=== PATIENT | female | born 1940 | race African-American/Black ===

== ENCOUNTER 2017-08-28 05:51 | Observation (INO) | payer BC, MEDICARE ==
[2017-08-28] VITALS (8 sets, daily range): BP systolic 122–176; BP diastolic 70–82; PULSE 86–107; RESP 16–26; TEMP 97.4–100.1; O2SAT 94–100
[~2017-08-28] VITALS: Ht 162.6 cm; Wt 59.0 kg
[~2017-08-28 05:51] MED LIST: AMLO5TAB22 PO; ATOR80TA PO; CLOP75 PO; ISOS30TA3 PO; LISI-363 PO; METO25 PO; TRAM50 PO
--- NOTE | 2017-08-28 06:23 | PD ---
HPI Chief Complaint: Chest Pain Time Seen by Provider: 06:18 Travel History International Travel<30 days: No Contact w/Intl Traveler<30days: No Traveled to known affect area: No History of Present Illness HPI 76-year-old female patient with history of previous MN, presents to the ER with 2 days history of dyspnea on exertion, chest discomfort which she currently rates an 8 out of 10. She denies any nausea, vomiting, fevers, diarrhea, or other symptoms. She has not had similar discomfort before. Modifying Factors: Worse with walking Associated Signs & Symptoms: Chest discomfort, shortness of breath, dyspnea on exertion Risk Factors: MN history PFSH Past Medical History Heart Rhythm Problems: No Cardiac Catheterization: Yes Cardiovascular Problems: Yes High Cholesterol: Yes Diabetes: No Diminished Hearing: No Hypertension: Yes Myocardial Infarction: Yes Tubal Ligation: Yes Past Surgical History Cardiac Surgery: Yes Coronary Stent: Yes Social History Alcohol Use: No Tobacco Use: Yes (1/2 ppW) Substance Use: No Allergies-Medications (Allergen,Severity, Reaction): Coded Allergies: No Known Allergies (Unverified Adverse Reaction, Unknown, 08/28/17) Reported Meds & Prescriptions Reported Meds & Active Scripts Active No Active Prescriptions or Reported Medications Review of Systems Except as stated in HPI: all other systems reviewed are Neg Physical Exam Narrative GENERAL: Well-developed elderly -Dominican female patient currently in mild distress. Awake and oriented 3. SKIN: Focused skin assessment warm/dry. HEAD: Atraumatic. Normocephalic. EYES: Pupils equal and round. No scleral icterus. No injection or drainage. ENT: No nasal bleeding or discharge. Mucous membranes pink and moist. NECK: Trachea midline. No JVD. CARDIOVASCULAR: Regular rate and rhythm. No murmur appreciated. RESPIRATORY: No accessory muscle use. Clear to auscultation. Breath sounds equal bilaterally. GASTROINTESTINAL: Abdomen soft, non-tender, nondistended. Hepatic and splenic margins not palpable. MUSCULOSKELETAL: No obvious deformities. No clubbing. No cyanosis. No edema. NEUROLOGICAL: Awake and alert. No obvious cranial nerve deficits. Motor grossly within normal limits. Normal speech. PSYCHIATRIC: Appropriate mood and affect; insight and judgment normal. Data Data Last Documented VS Vital Signs Date Time Temp Pulse Resp B/P (MAP) Pulse Ox O2 Delivery O2 Flow Rate FiO2 08/28/17 06:33 105 26 176/82 (113) 95 Room Air 08/28/17 05:52 100.1 Orders Orders Electrocardiogram (08/28/17 06:19) Ckmb (Isoenzyme) Profile (08/28/17 06:19) Complete Blood Count With Diff (08/28/17 06:19) Comprehensive Metabolic Panel (08/28/17 06:19) Magnesium (Mg) (08/28/17 06:19) Prothrombin Time / Inr (Pt) (08/28/17 06:19) Act Partial Throm Time (Ptt) (08/28/17 06:19) Troponin I (08/28/17 06:19) Chest, Single Ap (08/28/17 06:19) Ecg Monitoring (08/28/17 06:19) Bilateral Bp Monitoring (08/28/17 06:19) Iv Access Insert/Monitor (08/28/17 06:19) Oximetry (08/28/17 06:19) Oxygen Administration (08/28/17 06:19) Sodium Chloride 0.9% Flush (Ns Flush) (08/28/17 06:30) B-Type Natriuretic Peptide (08/28/17 06:19) D-Dimer (08/28/17 06:23) Ct Pulmonary Angiogram (08/28/17 06:57) Labs Laboratory Tests Test 08/28/17 06:30 [facility] Medical Decision Making Medical Screen Exam Complete: Yes Emergency Medical Condition: Yes Medical Record Reviewed: Yes Interpretation(s) EKG shows sinus tachycardia rate of 100 bpm, no ST elevation or depression, and no arrhythmias. No significant T-wave inversions. Last 24 hours Impressions Chest X-Ray 08/28/17618 Signed Impressions: Service Date/Time: Monday, August 28, 2017 06:27 - CONCLUSION: The lungs are clear. Aleksander Han MD Differential Diagnosis Chest discomfort, shortness of breath: Pneumonia versus bronchitis versus COPD versus CHF versus ACS versus dysrhythmias Narrative Course Workup was initiated by me. EKG was unremarkable except for tachycardia. Chest x-ray did not show any signs of acute pulmonary processes. Physician Communication Physician Communication Case is signed out to Dr. Mojica at 7 AM awaiting lab workup. Disposition based on workup. Diagnosis Primary Impression: Chest pain Scripts No Active Prescriptions or Reported Meds Condition: Stable Carson Zapata MD Aug 28, 2017 06:23
[2017-08-28] MEDS ORDERED: SODIUM CHLORIDE 0.9% FLUSH 10 ML FLUSH IVF PRN (06:30)
--- NOTE | 2017-08-28 06:46 | RADRPT ---
EXAM DATE/TIME: 08/28/2017 06:27 [facility] COMPARISON: CHEST SINGLE AP, August 15, 2015, 2:25. INDICATIONS : Chest pain MEDICAL HISTORY : Myocardial infarction. Hypercholesterolemia. Hypertension SURGICAL HISTORY : Coronary artery stent. Tubal ligation. ENCOUNTER: Initial ACUITY: 1 day PAIN SCORE: 8/10 LOCATION: Bilateral chest FINDINGS: A single view of the chest demonstrates the lungs to be symmetrically aerated without evidence of mas s, infiltrate or effusion. The cardiomediastinal contours are unremarkable. The central bronchopulm onary markings well delineated. Osseous structures are intact. CONCLUSION: The lungs are clear. Aleksander Han MD on August 28, 2017 at 6:44 Board Certified Radiologist. This report was verified electronically.
[2017-08-28 07:11] LABS: BASOPHIL # 0.1 TH/MM3 (0-0.2); BASOPHIL % 0.8 % (0.0-2.0); EOSINOPHIL % 0.6 % (0.0-4.0); HEMATOCRIT 37.4 % (35.0-46.0); LYMPH % 11.5 % (9.0-44.0); LYMPHOCYTE # 0.7 TH/MM3 (1.0-4.8); MEAN CELL VOLUME 92.8 FL (80.0-100.0); MEAN CORPUSCULAR HEMOGLOBIN 30.5 PG (27.0-34.0); MEAN CORPUSCULAR HGB CONC 32.9 % (32.0-36.0); MONO % 7.3 % (0.0-8.0); NEUT % 79.8 % (16.0-70.0); PLATELET COUNT 251 TH/MM3 (150-450); RED BLOOD COUNT 4.03 MIL/MM3 (4.00-5.30); RED CELL DISTRIBUTION WIDTH 12.7 % (11.6-17.2); WHITE BLOOD COUNT 6.3 TH/MM3 (4.0-11.0)
[2017-08-28 07:19] LABS: APTT (PATIENT) 26.2 SEC (24.3-30.1); HEMO FLAGS AUTO DIFF; PROTHROMBIN TIME - PATIENT 10.8 SEC (9.8-11.6)
--- NOTE | 2017-08-28 07:22 | PD ---
Physical Exam Narrative Patient was seen by ED physician and signed out to me. Patient with history hypertension, diabetes on diet control, hyperlipidemia, history of CT 2012 status post stent placement. Patient states that she is a smoker. Patient states that she take aspirin daily however did not take aspirin yesterday or today. Patient states that she drank coffee this morning around 4:30- 5:00 in the morning. Data Data Last Documented VS Vital Signs Date Time Temp Pulse Resp B/P (MAP) Pulse Ox O2 Delivery O2 Flow Rate FiO2 08/28/17 08:25 91 142/71 (94) 142/74 (96) 08/28/17 08:23 22 94 Room Air 08/28/17 05:52 100.1 Orders Orders Electrocardiogram (08/28/17 06:19) Ckmb (Isoenzyme) Profile (08/28/17 06:19) Complete Blood Count With Diff (08/28/17 06:19) Comprehensive Metabolic Panel (08/28/17 06:19) Magnesium (Mg) (08/28/17 06:19) Prothrombin Time / Inr (Pt) (08/28/17 06:19) Act Partial Throm Time (Ptt) (08/28/17 06:19) Troponin I (08/28/17 06:19) Chest, Single Ap (08/28/17 06:19) Ecg Monitoring (08/28/17 06:19) Bilateral Bp Monitoring (08/28/17 06:19) Iv Access Insert/Monitor (08/28/17 06:19) Oximetry (08/28/17 06:19) Oxygen Administration (08/28/17 06:19) Sodium Chloride 0.9% Flush (Ns Flush) (08/28/17 06:30) B-Type Natriuretic Peptide (08/28/17 06:19) D-Dimer (08/28/17 06:23) Ct Pulmonary Angiogram (08/28/17 06:57) CKMB (08/28/17 06:30) CKMB% (08/28/17 06:30) Iohexol 350 Inj (Omnipaque 350 Inj) (08/28/17 08:01) Aspirin (Aspirin) (08/28/17 08:30) Admit Order (Ed Use Only) (08/28/17 08:30) Activity Bed Rest With Brp (08/28/17 08:32) Vital Signs (Adult) Q4H (08/28/17 08:32) Cardiac Rhythm .As Directed (08/28/17 08:32) Notify Dr: Other .PRN (08/28/17 08:32) Notify Dr. Parameters (08/28/17 08:32) Resp Oxygen Nasal Cannula (08/28/17 ) Diet Npo (08/28/17 Breakfast) Ckmb (Isoenzyme) Profile (08/28/17 09:30) Ckmb (Isoenzyme) Profile (08/28/17 12:30) Troponin I (08/28/17 09:30) Troponin I (08/28/17 12:30) Electrocardiogram (08/28/17 09:30) Electrocardiogram (08/28/17 12:30) ^ Obtain (08/28/17 08:32) Sodium Chloride 0.9% Flush (Ns Flush) (08/28/17 08:45) Sodium Chloride 0.9% Flush (Ns Flush) (08/28/17 09:00) Acetaminophen (Tylenol) (08/28/17 08:45) Fashion Patternmaker / Telemetry LARISSA.Q8H (08/28/17 08:32) Labs Laboratory Tests Test 08/28/17 06:30 White Blood Count 6.3 TH/MM3 Red Blood Count 4.03 MIL/MM3 Hemoglobin 12.3 GM/DL Hematocrit 37.4 % Mean Corpuscular Volume 92.8 FL Mean Corpuscular Hemoglobin 30.5 PG Mean Corpuscular Hemoglobin Concent 32.9 % Red Cell Distribution Width 12.7 % Platelet Count 251 TH/MM3 Mean Platelet Volume 7.9 FL Neutrophils (%) (Auto) 79.8 % Lymphocytes (%) (Auto) 11.5 % Monocytes (%) (Auto) 7.3 % Eosinophils (%) (Auto) 0.6 % Basophils (%) (Auto) 0.8 % Neutrophils # (Auto) 5.0 TH/MM3 Lymphocytes # (Auto) 0.7 TH/MM3 Monocytes # (Auto) 0.5 TH/MM3 Eosinophils # (Auto) 0.0 TH/MM3 Basophils # (Auto) 0.1 TH/MM3 CBC Comment AUTO DIFF Prothrombin Time 10.8 SEC Prothromb Time International Ratio 1.0 RATIO Activated Partial Thromboplast Time 26.2 SEC D-Dimer Quantitative (PE/DVT) 2.32 MG/L FEU Blood Urea Nitrogen 10 MG/DL Creatinine 0.76 MG/DL Random Glucose 123 MG/DL Total Protein 7.8 GM/DL Albumin 4.1 GM/DL Calcium Level 9.0 MG/DL Magnesium Level 1.9 MG/DL Alkaline Phosphatase 101 U/L Aspartate Amino Transf (AST/SGOT) 17 U/L Alanine Aminotransferase (ALT/SGPT) 18 U/L Total Bilirubin 0.6 MG/DL Sodium Level 132 MEQ/L Potassium Level 4.0 MEQ/L Chloride Level 100 MEQ/L Carbon Dioxide Level 21.6 MEQ/L Anion Gap 10 MEQ/L Estimat Glomerular Filtration Rate 89 ML/MIN Total Creatine Kinase 116 U/L Creatine Kinase MB 1.4 NG/ML Troponin I LESS THAN 0.02 NG/ML B-Type Natriuretic Peptide 74 PG/ML MDM Supervised Visit with RODOLFO: No Interpretation(s) 8:05 AM. CBC within normal limit. CMP with sodium 132. Cardiac enzymes are normal. BNP 74. D-dimer 2.32. 8:[address] Angiography 08/28/1757 Signed Impressions: Service Date/Time: Monday, August 28, 2017 07:45 - CONCLUSION: 1. No pulmonary embolus or other acute cardiopulmonary disease demonstrated. 2. Coronary artery calcification and emphysema. Rhett Green MD Chest X-Ray 08/28/17618 Signed Impressions: Service Date/Time: Monday, August 28, 2017 06:27 - CONCLUSION: The lungs are clear. Aleksander Han MD Narrative Course Aspirin 325 mg by mouth given. Patient will be admitted to the chest pain center. Diagnosis Primary Impression: Chest pain Qualified Codes: R07.9 - Chest pain, unspecified Admitting Information Admitting Physician Requests: Observation Scripts No Active Prescriptions or Reported Meds Condition: Stable Trey Mojica MD Aug 28, 2017 07:22
[2017-08-28 07:35] LABS: ALT (GPT) 18 U/L (10-53); ANION GAP 10 MEQ/L (5-15); AST (GOT) 17 U/L (15-37); BICARBONATE 21.6 MEQ/L (21.0-32.0); BLOOD UREA NITROGEN 10 MG/DL (7-18); CHLORIDE 100 MEQ/L (98-107); GLOMERULAR FILTRATION RATE 89 ML/MIN (>89); MAGNESIUM 1.9 MG/DL (1.5-2.5); SODIUM (NA) 132 MEQ/L (136-145)
[2017-08-28 07:39] LABS: ALKALINE PHOSPHATASE 101 U/L (45-117); CREATINE KINASE 116 U/L (26-192); TOTAL BILIRUBIN ADULT 0.6 MG/DL (0.2-1.0)
[2017-08-28 07:51] LABS: CKMB 1.4 NG/ML (0.5-3.6)
[2017-08-28] MEDS ORDERED: IOHEXOL 350 MG/ML 10 ML VIAL (for RAD DIAG) IVCONTRAST ONE (08:01)
--- NOTE | 2017-08-28 08:06 | RADRPT ---
EXAM DATE/TIME: 08/28/2017 07:45 [facility] COMPARISON: CHEST SINGLE AP, August 28, 2017, 6:27. CT PULMONARY ANGIOGRAM, August 15, 2015, 3:37. INDICATIONS : Chest pain IV CONTRAST: 75 cc Omnipaque 350 (iohexol) IV RADIATION DOSE: 9.77 CTDIvol (mGy) MEDICAL HISTORY : Cardiovascular disease. Hypertension. Hypercholesterolemia. SURGICAL HISTORY : Tubal ligation. Heart stents, heart cath ENCOUNTER: Initial ACUITY: 1 day PAIN SCALE: 8/10 LOCATION: Bilateral chest TECHNIQUE: Volumetric scanning of the chest was performed using a pulmonary embolism protocol MIP images were re constructed. Using automated exposure control and adjustment of the mA and/or kV according to patien t size, radiation dose was kept as low as reasonably achievable to obtain optimal diagnostic quality images. DICOM format image data is available electronically for review and comparison. Follow-up recommendations for detected pulmonary nodules are based at a minimum on nodule size and pa tient risk factors according to Fleischner Society Guidelines. FINDINGS: PULMONARY ARTERIES: No filling defects are seen in the pulmonary arteries through the segmental level. LUNGS: Emphysema again noted. 4 mm subpleural nodule right middle lobe unchanged, benign. No infiltrate, eff usion or pneumothorax. PLEURAE: There is no pleural thickening or pleural effusion. MEDIASTINUM: There is good visualization of the great vessels of the middle mediastinum. No evidence of mediastin al or hilar adenopathy/mass. Heart size normal. There is coronary artery calcification. There is also atherosclerosis and tortuosity of the thoracic aorta. MUSCULOSKELETAL: Within normal limits for patient age. MISCELLANEOUS: The visualized upper abdominal organs demonstrate no acute abnormality. CONCLUSION: 1. No pulmonary embolus or other acute cardiopulmonary disease demonstrated. 2. Coronary artery calcification and emphysema. Rhett Green MD on August 28, 2017 at 8:03 Board Certified Radiologist. This report was verified electronically.
[2017-08-28] MEDS ORDERED: ASPIRIN 325 MG TAB PO ONE (08:30)
[2017-08-28 08:36] LABS: SCAN/DIFF AUTO DIFF CONFIRMED
[2017-08-28 08:37] LABS: PLATELET ESTIMATE SMEAR NORMAL (NORMAL); PLATELET MORPHOLOGY NORMAL (NORMAL)
[2017-08-28] MEDS ORDERED: SODIUM CHLORIDE 0.9% FLUSH 10 ML FLUSH IV FLUSH PRN (08:45)
[2017-08-28] MEDS ORDERED: ACETAMINOPHEN 500 MG CPLT PO PRN (08:45)
[2017-08-28] MEDS ORDERED: SODIUM CHLORIDE 0.9% FLUSH 10 ML FLUSH IV FLUSH SCH (09:00)
[2017-08-28] MEDS ORDERED: ONDANSETRON HCL 4 MG/2 ML VIAL IV PUSH PRN (09:15)
[2017-08-28] MEDS ORDERED: NITROGLYCERIN 0.4 MG SL 25 TABS/BTL SL PRN (09:15)
--- NOTE | 2017-08-28 10:26 | HHI.HP ---
HPI Primary Care Physician Primary Care Physician Dr. Myers Chief Complaint Chest pain History of Present Illness 76-year-old female with history of hypertension, hyperlipidemia, CAD, type II diabetes, and current smoker presents to emergency room for further evaluation of chest pain. Onset yesterday morning. Initially thought she needed to have bowel movement upon awakening. Developed abdominal upset and cramping. Experienced substernal chest pain simultaneously. Unable to describe pain only stating "it hurt really bad, I thought I was going to have a heart attack." Precipitating factors exertion, stating each time she attempted to walk yesterday she developed substernal chest pain, however pointing to right upper quadrat. Relieving factors rest. Denies discomfort occurring during nonexertional periods. No associated symptoms of nausea, vomiting, dyspnea, or diaphoreses. Unable to give accurate duration, reporting pain occurred more often then not yesterday. Denies similar pain in the past. Currently she is chest pain free. Abdominal pain as completely resolved. Does not remember events of myocardial infarct in 2012. States "I don't remember anything about my heart attack, I just woke up in the hospital." Endorses current respiratory illness beginning 3 days ago. Productive cough, no fever or chills. Endorses she is not taking any of her prescription medications, cannot remember how long she has been out of her medications, and she is not following with a PCP. Patient is a poor historian, suspected memory issues. ER documentation states patient endorses coffee early am hours, however patient has constantly denied eating or drinking anything this morning. Review of Systems General: Current respiratory illness and fatigue. No fever, chills, or change in appetite. Has been in her general state of health. Reports she lives with her children and currently "getting my life together." Current does not have a PCP or taking any medications. Unable to give timeframe of how long she has not taken her medications. States her family would not know either. HEENT: No MCCLAIN, no nasal congestion, current nasal drainage CV: As stated above. No current CP, discomfort, or pressure. RESP: No SOB. Productive cough "when I cough hard." Sputum color unknown. Intermittent wheeze x 2 days. Current cigar smoker. GI: No nausea, vomiting, bowel changes, diarrhea, constipation, or pain. : No dysuria, urgency, or frequency. EXT: No lower leg edema, no paraesthesias MS: No discomfort, change in ROM, injury, recent fall, or trauma. NEURO: No difficulty with balance, LOC, motor/sensory deficits PSYCH: No anxiety, depression, or situational stress. SKIN: No rashes, no concerning lesions Past Family Social History Allergies: Coded Allergies: No Known Allergies (Verified Allergy, Unknown, 08/28/17) Past Medical History CAD, [place] x1 cardiac stent (2011), hypertension, diabetes type 2, hyperlipidemia Past Surgical History Tubal ligation Reported Medications Reported Meds & Active Scripts Active No Active Prescriptions or Reported Medications Active Ordered Medications Current Medications Medications (Trade) Dose Ordered Sig/Brown Route Start Time Stop Time Status Last Admin (NS Flush) 2 ml UNSCH PRN IV FLUSH 08/28/17 08:45 (NS Flush) 2 ml BID IV FLUSH 08/28/17 09:00 08/28/17 08:40 (Tylenol) 500 mg Q4H PRN PO 08/28/17 08:45 (Zofran Inj) 4 mg Q6H PRN IV PUSH 08/28/17 09:15 (Nitrostat Sl) 0.4 mg Q5M PRN SL 08/28/17 09:15 (Aspirin) 325 mg DAILY PO 08/29/17 09:00 Family History Noncontributory for early onset cardiovascular disease. Social History Known coronary artery disease, diabetes, hypertension, and hyperlipidemia. Current smoker, smokes cigars daily. Vague on amount and duration. No alcohol. Single, lives alone. Spoke with daughter, Liza. Liza states patient used to live with her but her mother became angry insisted on living alone. Past Cardiac Testing 08/15/2015 Lexiscan-no reversible perfusion defects to suggest stress-induced myocardial ischemia, EF 62%, intact wall motion, no hypokinetic or dyskinetic wall motion. Does not follow with a supervisor in charge. x1 Stent placed in [place], does not remember events of myocardial infarct. Physical Exam Vital Signs Vital Signs Date Time Temp Pulse Resp B/P (MAP) Pulse Ox O2 Delivery O2 Flow Rate FiO2 08/28/17 08:25 91 142/71 (94) 142/74 (96) 08/28/17 08:23 93 22 142/71 (94) 94 Room Air 08/28/17 06:33 105 26 176/82 (113) 95 Room Air 08/28/17 05:52 100.1 102 16 172/82 (112) 96 Room Air Physical Exam GENERAL: Alert WN, WD, thin, NAD, pleasant, elderly female HEAD: NC, AT EYES: Sclera clear, conjunctiva without injection, pupils equal and round ENT: Mucous membranes pink and moist CV: RRR, without murmur, rub, gallop, no JVD, S1-S2 no S3-S4. Chest wall nontender with palpation. Bilateral carotid and femoral bruits. RESP: Inspiratory wheeze upper lobes, rhonchi throughout bilateral, no crackles. Symmetrical chest rise, nonlabored, able to speak in full sentences. Harsh, nonproductive cough. ABD: Soft, NT, ND, no masses, positive bowel tones, flat EXT: Pedal pulses +2 right, +1 left, no dependent edema MS: Normal tone 4 extremities, no obvious deformities, full range of motion NEURO: CN II through CN XII grossly intact, motor strength 5/5 PSYCH: A+O 3, pleasant affect, appropriate speech, mood, insight and judgment SKIN: Normal turgor, normal texture, no lesions, no rashes Laboratory Laboratory Tests Test 08/28/17 06:30 White Blood Count 6.3 Red Blood Count 4.03 Hemoglobin 12.3 Hematocrit 37.4 Mean Corpuscular Volume 92.8 Mean Corpuscular Hemoglobin 30.5 Mean Corpuscular Hemoglobin Concent 32.9 Red Cell Distribution Width 12.7 Platelet Count 251 Mean Platelet Volume 7.9 Neutrophils (%) (Auto) 79.8 Lymphocytes (%) (Auto) 11.5 Monocytes (%) (Auto) 7.3 Eosinophils (%) (Auto) 0.6 Basophils (%) (Auto) 0.8 Neutrophils # (Auto) 5.0 Lymphocytes # (Auto) 0.7 Monocytes # (Auto) 0.5 Eosinophils # (Auto) 0.0 Basophils # (Auto) 0.1 CBC Comment AUTO DIFF Differential Comment AUTO DIFF CONFIRMED Platelet Estimate NORMAL Platelet Morphology Comment NORMAL Prothrombin Time 10.8 Prothromb Time International Ratio 1.0 Activated Partial Thromboplast Time 26.2 D-Dimer Quantitative (PE/DVT) 2.32 Blood Urea Nitrogen 10 Creatinine 0.76 Random Glucose 123 Total Protein 7.8 Albumin 4.1 Calcium Level 9.0 Magnesium Level 1.9 Alkaline Phosphatase 101 Aspartate Amino Transf (AST/SGOT) 17 Alanine Aminotransferase (ALT/SGPT) 18 Total Bilirubin 0.6 Sodium Level 132 Potassium Level 4.0 Chloride Level 100 Carbon Dioxide Level 21.6 Anion Gap 10 Estimat Glomerular Filtration Rate 89 Total Creatine Kinase 116 Creatine Kinase MB 1.4 Troponin I LESS THAN 0.02 B-Type Natriuretic Peptide 74 Result Diagram: 08/28/1762908/28/[address] Angiography 08/28/17656 Signed Impressions: Service Date/Time: Monday, August 28, 2017 07:45 - CONCLUSION: 1. No pulmonary embolus or other acute cardiopulmonary disease demonstrated. 2. Coronary artery calcification and emphysema. Rhett Green MD Chest X-Ray 08/28/17618 Signed Impressions: Service Date/Time: Monday, August 28, 2017 06:27 - CONCLUSION: The lungs are clear. Aleksander Han MD Course EKG NSR, no st segment changes, criteria for LVH Caprini VTE Risk Assessment Caprini VTE Risk Assessment: Mod/High Risk (score >= 2) Caprini Risk Assessment Model Point Value = 1 Point Value = 2 Point Value = 3 Point Value = 5 Age 41-60 Minor surgery BMI > 25 kg/m2 Swollen legs Varicose veins or History of unexplained or recurrent spontaneous Oral contraceptives or hormone replacement Sepsis (< 1 month) Serious lung disease, including pneumonia (< 1 month) Abnormal pulmonary function Acute myocardial infarction Congestive heart failure (< 1 month) History of inflammatory bowel disease Medical patient at bed rest Age 61-74 Arthroscopic surgery Major open surgery (> 45 min) Laparoscopic surgery (> 45 min) Malignancy Confined to bed (> 72 hours) Immobilizing plaster cast Central venous access Age >= 75 History of VTE Family history of VTE Factor V Leiden Prothrombin [id number] Lupus anticoagulant Anticardiolipin antibodies Elevated serum homocysteine Heparin-induced thrombocytopenia Other congenital or acquired thrombophilia Stroke (< 1 month) Elective arthroplasty Hip, pelvis, or leg fracture Acute spinal cord injury (< 1 month) Prophylaxis Regimen Total Risk Factor Score Risk Level Prophylaxis Regimen 0-1 Low Early ambulation 2 Moderate Order ONE of the following: *Sequential Compression Device (SCD) *Heparin 5000 units SQ BID 3-4 Higher Order ONE of the following medications: *Heparin 5000 units SQ TID *Enoxaparin/Lovenox 40 mg SQ daily (WT < 150 kg, CrCl > 30 mL/min) *Enoxaparin/Lovenox 30 mg SQ daily (WT < 150 kg, CrCl > 10-29 mL/min) *Enoxaparin/Lovenox 30 mg SQ BID (WT < 150 kg, CrCl > 30 mL/min) AND/OR *Sequential Compression Device (SCD) 5 or more Highest Order ONE of the following medications: *Heparin 5000 units SQ TID (Preferred with Epidurals) *Enoxaparin/Lovenox 40 mg SQ daily (WT < 150 kg, CrCl > 30 mL/min) *Enoxaparin/Lovenox 30 mg SQ daily (WT < 150 kg, CrCl > 10-29 mL/min) *Enoxaparin/Lovenox 30 mg SQ BID (WT < 150 kg, CrCl > 30 mL/min) AND *Sequential Compression Device (SCD) Assessment and Plan Assessment and Plan #1 Chest pain-admitted to chest pain. Rule out with 3 sets of EKGs, cardiac enzymes, and monitor on telemetry. Will be seen and evaluated by Dr. Boyd Cavanaugh. Discussed possiblilty of cardiac stress test after being ruled out and seen by supervisor in charge. Further disposition to follow. #2 History of CAD-encouraged her to establish with a supervisor in charge, discussed importance of compliance with medication, start Metoprolol 25 mg twice a day #3 Hyperlipidemia-benefits of cholesterol medication discussed, encouraged compliance with medication #4 Diabetic Type II-random glucose 123, encouraged establishing with a PCP, no SSI scale at this time #5 Hypertension-continue to monitor, the importance of tight blood pressure control, establish with a PCP, start amlodipine 5mg daily #6 Tobacco use-all encouraged and stressed the importance of tobacco cessation. Instructed her to quit smoking. #7 Acute bronchitis-albuterol RT x1 dose now 11:15 Spoke with patient's daughter via telephone. Daughter reports mother has been living alone, but currently in the process of moving her to her home. 1520 Lexiscan unremarkable. Plans to discharge. Patients brother, sister in law , and daughter taking patient home with them. Discharge instructions discussed with patient's brother. Encouraged follow up with PCP. Gavi Lawson Aug 28, 2017 10:26
[2017-08-28 10:44] LABS: CREATINE KINASE 131 U/L (26-192)
[2017-08-28] MEDS ORDERED: RESP: ALBUTEROL 2.5 MG/3 ML NEB (PRN) NEB (10:45)
[2017-08-28 10:56] LABS: CKMB 1.8 NG/ML (0.5-3.6)
[2017-08-28] MEDS ORDERED: amLODIPine BESYLATE 5 MG TAB PO ONE (11:00)
[2017-08-28] MEDS ORDERED: METOPROLOL TARTRATE 25 MG TAB PO SCH (11:00)
--- NOTE | 2017-08-28 11:50 | EKG ---
Date Performed: 08/28/2017 Time Performed: 06:25:42 PTAGE: 76 years EKG: SINUS TACHYCARDIA POSSIBLE RIGHT ATRIAL ENLARGEMENT MINIMAL VOLTAGE CRITERIA FOR LVH, CONSI YELENA NORMAL VARIANT NONSPECIFIC T-WAVE ABNORMALITY ABNORMAL RHYTHM ECG PREVIOUS TRACING : 08/15/2015 07.57 Compared to prior study, right atrial abnormality and nonsp ecific ST-T changes are new. DOCTOR: Navid Martinez Interpretating Date/Time 08/28/2017 11:49:19
--- NOTE | 2017-08-28 11:50 | EKG ---
Date Performed: 08/28/2017 Time Performed: 09:53:16 PTAGE: 76 years EKG: Sinus rhythm NONSPECIFIC T-WAVE ABNORMALITY Right atrial abnormality BORDERLINE ECG PREVIOUS TRACING : 08/28/2017 06.25 Compared to prior tracing no significant change DOCTOR: Navid Martinez Interpretating Date/Time 08/28/2017 11:50:12
[2017-08-28] MEDS ORDERED: LISI-515 PO (11:55)
[2017-08-28] MEDS ORDERED: METO25TA3 PO (11:55)
[2017-08-28 12:31] LABS: CREATINE KINASE 128 U/L (26-192)
[2017-08-28 12:44] LABS: CKMB 1.8 NG/ML (0.5-3.6)
[2017-08-28] MEDS ORDERED: ASPI81TA23 PO (13:03)
[2017-08-28] MEDS ORDERED: REGADENOSON INJ 0.4 MG/5 ML SYR ONE (14:13)
[2017-08-28] MEDS ORDERED: LISINOPRIL 20 MG TAB PO SCH (14:45)
[2017-08-28] MEDS ORDERED: cloNIDine HCL 0.1 MG TAB PO PRN (14:45)
--- NOTE | 2017-08-28 15:12 | RADRPT ---
EXAM DATE/TIME: 08/28/2017 14:00 [facility] COMPARISON: MYOCARDIAL PERF PHARM SPECT, GATED W/EF, August 15, 2015, 11:30. INDICATIONS : Mid chest pain for one day. Angina. Myocardial infarction. DOSE: 25.8 mCi Tc99m Myoview at stress. 8.7 mCi Tc99m Myoview at rest. 0.4 mg Lexiscan STRESS SYMPTOMS: Nausea and shortness of breath. EJECTION FRACTION: 69% MEDICAL HISTORY : Diabetes mellitus type 2. Hypertension. Cardiovascular disease SURGICAL HISTORY : Coronary artery stent. Tubal ligation. ENCOUNTER: Initial ACUITY: 1 day PAIN SCALE: 5/10 LOCATION: Midsternal chest TECHNIQUE: The patient underwent pharmacologic stress with infusion of prescribed dose. Continuous ECG tracing was monitored during stress. Gated SPECT imaging was performed after stress and conventional SPECT i maging was performed at rest. The examination was performed on a SPECT/CT scanner, both attenuation and non-corrected datasets were reviewed. FINDINGS: DISTRIBUTION: The maximum perfused segment at stress is in the lateral wall. PERFUSION STUDY: The pattern of perfusion at stress is within normal limits. GATED STUDY: There is intact wall motion and thickening without hypokinetic or dyskinetic segments. CONCLUSION: No reversible perfusion defects are identified to suggest stress-induced myocardial ischemia. RISK CATEGORY: Low (<1% Annual Mortality Rate) Theron Edwards MD on August 28, 2017 at 15:08 Board Certified Radiologist. This report was verified electronically.
--- NOTE | 2017-08-28 15:24 | HHI.DCPOC ---
Discharge Care Plan Diagnosis: (1) Atypical chest pain (2) Hypertension (3) Hyperlipidemia (4) CAD (coronary artery disease) (5) Tobacco abuse (6) H/O heart artery stent (7) Tobacco abuse Goals to Promote Your Health * To prevent worsening of your condition and complications * To maintain your health at the optimal level Directions to Meet Your Goals Take your medications as prescribed Follow your dietary instruction Follow activity as directed Keep your appointments as scheduled Take your immunizations and boosters as scheduled If your symptoms worsen call your PCP, if no PCP go to Urgent Care Center or Emergency Room Smoking is Dangerous to Your Health. Avoid second hand smoke Call the 24-hour hour crisis hotline for domestic abuse at Gavi Lawson Aug 28, 2017 15:24
[2017-08-29] MEDS ORDERED: ASPIRIN 325 MG TAB PO SCH (09:00)
--- NOTE | 2017-08-29 14:38 | TR ---
Date Performed: 08/28/2017 Time Performed: 14:19:15 DOCTOR: Navid Martinez DRUG LIST: CLINICAL HISTORY: ANGINA REASON FOR TEST: Angina REASON FOR ENDING: OBSERVATION: CONCLUSION: Lexiscan stress test was performed under standard four minute protocol. Radionuclid e was injected one minute prior to ending the test. No electrocardiographic abormalities were present to suggest ischemia. Nuclear imaging and interpretation are pending. COMMENTS:
--- NOTE | 2017-08-29 18:34 | EKG ---
Date Performed: 08/28/2017 Time Performed: 12:34:00 PTAGE: 76 years EKG: Sinus rhythm Consider anteroseptal myocardial infarction-age undeterminate. Repolarization abnormality. ABNORMAL ECG PREVIOUS TRACING : 08/28/2017 09.53 DOCTOR: Gurpreet Mcdonnell Interpretating Date/Time 08/29/2017 18:32:10
== END 2017-08-28 16:06 | disposition home or self-care (01) ==
LOC: NEPC 05:51 → NEDA 08:33 → NEPGCP 09:22
DX: R07.89 Other chest pain (principal); I10 Essential (primary) hypertension; J20.9 Acute bronchitis, unspecified; R10.9 Unspecified abdominal pain; I25.10 Atherosclerotic heart disease of native coronary artery without angina pectoris; F17.290 Nicotine dependence, other tobacco product, uncomplicated; E11.9 Type 2 diabetes mellitus without complications; I25.2 Old myocardial infarction; Z95.5 Presence of coronary angioplasty implant and graft; E78.00 Pure hypercholesterolemia, unspecified; R06.00 Dyspnea, unspecified; Z79.82 Long term (current) use of aspirin; R94.31 Abnormal electrocardiogram [ECG] [EKG]
CPT/HCPCS: 71010; 71275; 78452; 80053; 82550; 82552; 83690; 83735; 83880; 84484; 85025; 85379; 85610; 85730; 93005; 93017; 99285; A9502; G0378; J2785; Q9967

== ENCOUNTER 2017-12-31 15:21 | Emergency (ER) | payer MEDICARE ==
[~2017-12-31] VITALS: Ht 162.6 cm; Wt 65.0 kg
[~2017-12-31 15:21] MED LIST changes: -AMLO5TAB22 PO; +ASPI81TA23 PO; -ATOR80TA PO; -CLOP75 PO; -ISOS30TA3 PO; -LISI-363 PO; +LISI-515 PO; -METO25 PO; +METO25TA3 PO; -TRAM50 PO
[2017-12-31 15:50] VITALS: BP 173/72; PULSE 91; RESP 17; TEMP 98.7; O2SAT 99
== END 2017-12-31 18:51 | disposition left against medical advice (07) ==
LOC: NETRI 15:21
DX: Z53.21 Procedure and treatment not carried out due to patient leaving prior to being seen by health care provider (principal)
CPT/HCPCS: 99281

== ENCOUNTER 2018-02-17 21:17 | Emergency (ER) | payer MEDICARE ==
[~2018-02-17] VITALS: Ht 160 cm; Wt 58.0 kg
[2018-02-17 21:23] VITALS: BP 185/83; PULSE 110; RESP 16; TEMP 100.2; O2SAT 97
[2018-02-17] MEDS ORDERED: SODIUM CHLOR 0.9% 1000 ML INJ 1,000 ML IV SCH (21:32)
[2018-02-17 21:34] VITALS: BP 149/72; PULSE 105; RESP 16; O2SAT 96
[2018-02-17 21:35] VITALS: RESP 16
--- NOTE | 2018-02-17 21:36 | PD ---
HPI Chief Complaint: Chest Pain Time Seen by Provider: 21:32 Travel History International Travel<30 days: No Contact w/Intl Traveler<30days: No Traveled to known affect area: No History of Present Illness HPI 77-year-old female with history of coronary artery disease, hypertension, hyperlipidemia, presents via EMS for evaluation. For the past 2 days she has had dyspnea with exertion, lower substernal chest pain, cough. Cough is productive with white sputum. Symptoms are worsened with ambulation. She also endorses increased urinary frequency and urgency. Denies nausea, vomiting, diarrhea, constipation, recent travel, lower extremity edema. She is noted to be febrile with a temperature of 101.2 per EMS. She received 324 mg of aspirin as well as 1 dose of sublingual nitroglycerin. She reports that she moved to this area 2.5 years ago from [place] and she does not have a local primary care physician. She has no other complaints at this time. PFSH Past Medical History Heart Rhythm Problems: No Cardiac Catheterization: Yes Cardiovascular Problems: Yes High Cholesterol: Yes Congestive Heart Failure: Yes Diabetes: No Diminished Hearing: No Heparin Induced Thrombocytopen: No Hypertension: Yes Immunizations Current: Yes Myocardial Infarction: Yes Tetanus Vaccination: Unknown Influenza Vaccination: No Tubal Ligation: Yes Past Surgical History Cardiac Surgery: Yes Coronary Artery Bypass Graft: No Coronary Stent: Yes Family History Family Myocardial Infarction: No Social History Alcohol Use: No Tobacco Use: Yes (1/2 ppW) Substance Use: No Allergies-Medications (Allergen,Severity, Reaction): Coded Allergies: No Known Allergies (Verified Allergy, Unknown, 02/17/18) Reported Meds & Prescriptions Reported Meds & Active Scripts Active Zofran Odt (Ondansetron Odt) 4 Mg Tab 4 Mg SL Q6HR PRN Bentyl (Dicyclomine HCl) 10 Mg Cap 10 Mg PO TID PRN Review of Systems Except as stated in HPI: all other systems reviewed are Neg Physical Exam Narrative GENERAL: Pleasant well-developed well-nourished female no acute distress. Noted to be febrile and tachycardic. SKIN: Warm and dry. HEAD: Atraumatic. Normocephalic. EYES: Pupils equal and round. No scleral icterus. No injection or drainage. ENT: No nasal bleeding or discharge. Mucous membranes pink and moist. NECK: Trachea midline. No JVD. CARDIOVASCULAR: Regular rate and rhythm. No murmur appreciated. RESPIRATORY: No accessory muscle use. Clear to auscultation. Breath sounds equal bilaterally. GASTROINTESTINAL: Abdomen soft, tenderness to palpation in the epigastrium and right upper quadrant without guarding. No CVA tenderness. MUSCULOSKELETAL: No obvious deformities. No clubbing. No cyanosis. No edema. NEUROLOGICAL: Awake and alert. No obvious cranial nerve deficits. Motor grossly within normal limits. Normal speech. PSYCHIATRIC: Appropriate mood and affect; insight and judgment normal. Data Data Last Documented VS Vital Signs Date Time Temp Pulse Resp B/P (MAP) Pulse Ox O2 Delivery O2 Flow Rate FiO2 02/18/18 01:55 02/18/18 00:00 99.1 02/17/18 22:40 85 16 96 Room Air Orders Orders Ct Abd/Pel W Iv Contrast(Rout) (02/17/18 21:32) Us Abdomen Gallbladder (02/17/18 ) Chest, Single Ap (02/17/18 21:32) Sepsis Workup Initiated (02/17/18 ) Complete Blood Count With Diff (02/17/18 21:32) Comprehensive Metabolic Panel (02/17/18 21:32) Lactic Acid Sepsis Protocol (02/17/18 21:32) Urinalysis - C+S If Indicated (02/17/18 21:32) Blood Culture (02/17/18 21:32) Blood Glucose (02/17/18 21:32) Ecg Monitoring (02/17/18 21:32) Iv Access Insert/Monitor (02/17/18 21:32) Oximetry (02/17/18 21:32) Oxygen Administration (02/17/18 21:32) Electrocardiogram (02/17/18 21:32) Ckmb (Isoenzyme) Profile (02/17/18 21:32) Magnesium (Mg) (02/17/18 21:32) Prothrombin Time / Inr (Pt) (02/17/18 21:32) Act Partial Throm Time (Ptt) (02/17/18 21:32) Troponin I (02/17/18 21:32) Bilateral Bp Monitoring (02/17/18 21:32) Sodium Chlor 0.9% 1000 Ml Inj (Ns 1000 M (02/17/18 21:32) Morphine Inj (Morphine Inj) (02/17/18 21:45) Ondansetron Odt (Zofran Odt) (02/17/18 21:45) CKMB (02/17/18 21:40) CKMB% (02/17/18 21:40) Iohexol 350 Inj (Omnipaque 350 Inj) (02/17/18 23:06) Ed Discharge Order (02/18/18 01:35) Labs Laboratory Tests Test 02/17/18 21:40 White Blood Count 9.1 TH/MM3 Red Blood Count 3.81 MIL/MM3 Hemoglobin 11.7 GM/DL Hematocrit 34.3 % Mean Corpuscular Volume 90.2 FL Mean Corpuscular Hemoglobin 30.7 PG Mean Corpuscular Hemoglobin Concent 34.0 % Red Cell Distribution Width 12.4 % Platelet Count 235 TH/MM3 Mean Platelet Volume 7.4 FL Neutrophils (%) (Auto) 85.4 % Lymphocytes (%) (Auto) 6.9 % Monocytes (%) (Auto) 5.7 % Eosinophils (%) (Auto) 0.3 % Basophils (%) (Auto) 1.7 % Neutrophils # (Auto) 7.7 TH/MM3 Lymphocytes # (Auto) 0.6 TH/MM3 Monocytes # (Auto) 0.5 TH/MM3 Eosinophils # (Auto) 0.0 TH/MM3 Basophils # (Auto) 0.2 TH/MM3 CBC Comment DIFF FINAL Differential Comment Prothrombin Time 10.5 SEC Prothromb Time International Ratio 1.0 RATIO Activated Partial Thromboplast Time 26.4 SEC Urine Color LIGHT-YELLOW Urine Turbidity CLEAR Urine pH 7.5 Urine Specific [place] 1.008 Urine Protein 100 mg/dL Urine Glucose (UA) NEG mg/dL Urine Ketones NEG mg/dL Urine Occult Blood SMALL Urine Nitrite NEG Urine Bilirubin NEG Urine Urobilinogen LESS THAN 2.0 MG/DL Urine Leukocyte Esterase NEG Urine RBC 5 /hpf Urine WBC LESS THAN 1 /hpf Microscopic Urinalysis Comment CATH-CULT NOT IND Blood Urea Nitrogen 8 MG/DL Creatinine 0.81 MG/DL Random Glucose 112 MG/DL Total Protein 7.4 GM/DL Albumin 3.9 GM/DL Calcium Level 8.9 MG/DL Magnesium Level 1.7 MG/DL Alkaline Phosphatase 98 U/L Aspartate Amino Transf (AST/SGOT) 18 U/L Alanine Aminotransferase (ALT/SGPT) 13 U/L Total Bilirubin 0.4 MG/DL Sodium Level 134 MEQ/L Potassium Level 3.9 MEQ/L Chloride Level 95 MEQ/L Carbon Dioxide Level 26.8 MEQ/L Anion Gap 12 MEQ/L Estimat Glomerular Filtration Rate 83 ML/MIN Lactic Acid Level 1.3 mmol/L Total Creatine Kinase 218 U/L Creatine Kinase MB 2.1 NG/ML Creatine Kinase MB % 1.0 % Troponin I LESS THAN 0.02 NG/ML MDM Medical Decision Making Medical Screen Exam Complete: Yes Emergency Medical Condition: Yes Medical Record Reviewed: Yes Differential Diagnosis Pyelonephritis, cholecystitis, cholangitis, pneumonia, acute coronary syndrome, angina, empyema, pneumothorax, hemothorax, aortic dissection, colitis Narrative Course The patient was placed on ECG monitoring pulse oximetry. A 12-lead EKG was obtained. Plan is for lab work, chest x-ray, CT abdomen and pelvis, right upper quadrant ultrasound, blood cultures, urinalysis. She will be given IV normal saline. CBC reveals WBC count 9.1 with 85% neutrophils otherwise unremarkable. CMP is reassuring. Cardiac enzymes are negative. Lactic acid within normal limits. Urinalysis is not suggestive of infectious process. Chest x-ray is normal. 2300: At the end of my shift the patient was signed out pending imaging studies. Scripts Ondansetron Odt (Zofran Odt) 4 Mg Tab 4 MG SL Q6HR Y for Nausea/Vomiting, #7 TAB 0 Refills Prov: Carson Zapata MD 02/18/18 Dicyclomine (Bentyl) 10 Mg Cap 10 MG PO TID Y for Bowel Management, #12 CAP 0 Refills Prov: Carson Zapata MD 02/18/18 Fermín Chambers February 17, 2018 21:36
[2018-02-17] MEDS ORDERED: MORPHINE SULFATE 4 MG/ML INJ IV PUSH ONE (21:45)
[2018-02-17] MEDS ORDERED: ONDANSETRON ODT 4 MG TAB PO ONE (21:45)
--- NOTE | 2018-02-17 22:00 | RADRPT ---
EXAM DATE/TIME: 02/17/2018 21:44 [facility] COMPARISON: CHEST SINGLE AP, August 28, 2017, 6:27. INDICATIONS : Shortness of breath and chest pain. MEDICAL HISTORY : Myocardial infarction. SURGICAL HISTORY : Stent. ENCOUNTER: Initial ACUITY: 2 days PAIN SCORE: 5/10 LOCATION: chest FINDINGS: A single view of the chest demonstrates the lungs to be symmetrically aerated without evidence of mas s, infiltrate or effusion. The cardiomediastinal contours are unremarkable. Osseous structures are intact. CONCLUSION: No acute disease. Aleksander Harrison Jr., MD on February 17, 2018 at 21:57 Board Certified Radiologist. This report was verified electronically.
[2018-02-17 22:11] LABS: AUTOMATED NEUTROPHIL # 7.7 TH/MM3 (1.8-7.7); BASOPHIL # 0.2 TH/MM3 (0-0.2); BASOPHIL % 1.7 % (0.0-2.0); EOSINOPHIL % 0.3 % (0.0-4.0); HEMATOCRIT 34.3 % (35.0-46.0); HEMOGLOBIN 11.7 GM/DL (11.6-15.3); LYMPH % 6.9 % (9.0-44.0); LYMPHOCYTE # 0.6 TH/MM3 (1.0-4.8); MEAN CELL VOLUME 90.2 FL (80.0-100.0); MEAN CORPUSCULAR HEMOGLOBIN 30.7 PG (27.0-34.0); MEAN PLATELET VOLUME 7.4 FL (7.0-11.0); MONO % 5.7 % (0.0-8.0); MONOCYTE # 0.5 TH/MM3 (0-0.9); NEUT % 85.4 % (16.0-70.0); PLATELET COUNT 235 TH/MM3 (150-450); RED BLOOD COUNT 3.81 MIL/MM3 (4.00-5.30); RED CELL DISTRIBUTION WIDTH 12.4 % (11.6-17.2); WHITE BLOOD COUNT 9.1 TH/MM3 (4.0-11.0)
[2018-02-17 22:21] LABS: ALBUMIN 3.9 GM/DL (3.4-5.0); ALT (GPT) 13 U/L (10-53); AST (GOT) 18 U/L (15-37); BICARBONATE 26.8 MEQ/L (21.0-32.0); BILIRUBIN, URINE NEG (NEG); BLOOD UREA NITROGEN 8 MG/DL (7-18); BLOOD, URINE SMALL (NEG); CALCIUM 8.9 MG/DL (8.5-10.1); CHLORIDE 95 MEQ/L (98-107); CREATININE 0.81 MG/DL (0.50-1.00); GLOMERULAR FILTRATION RATE 83 ML/MIN (>89); GLUCOSE,RANDOM 112 MG/DL (74-106); GLUCOSE,URINE NEG (NEG); KETONE, URINE NEG (NEG); MAGNESIUM 1.7 MG/DL (1.5-2.5); NITRITE,URINE NEG (NEG); PH, URINE 7.5 (5.0-8.5); SODIUM (NA) 134 MEQ/L (136-145); URINE COLOR LIGHT-YELLOW (YELLW/STRAW); URINE LEUKOCYTE ESTERASE NEG (NEG)
[2018-02-17 22:24] LABS: PROTHROMBIN TIME - PATIENT 10.5 SEC (9.8-11.6)
[2018-02-17 22:25] LABS: ALKALINE PHOSPHATASE 98 U/L (45-117); TOTAL BILIRUBIN ADULT 0.4 MG/DL (0.2-1.0); TOTAL PROTEIN 7.4 GM/DL (6.4-8.2); TROPONIN I LESS THAN 0.02 NG/ML (0.02-0.05)
[2018-02-17 22:40] VITALS: BP 157/71; PULSE 85; RESP 16; O2SAT 96
[2018-02-17] MEDS ORDERED: IOHEXOL 350 MG/ML 10 ML VIAL (for RAD DIAG) IVCONTRAST ONE (23:06)
--- NOTE | 2018-02-17 23:24 | RADRPT ---
EXAM DATE/TIME: 02/17/2018 22:58 [facility] COMPARISON: No previous studies available for comparison. INDICATIONS : Abdominal pain. IV CONTRAST: 96 cc Omnipaque 350 (iohexol) IV ORAL CONTRAST: No oral contrast ingested. RADIATION DOSE: 6.64 CTDIvol (mGy) MEDICAL HISTORY : Cardiovascular disease. Hypertension. Coronary stent SURGICAL HISTORY : None. ENCOUNTER: Initial ACUITY: 2 days PAIN SCALE: 6/10 LOCATION: abdomen TECHNIQUE: Volumetric scanning of the abdomen and pelvis was performed. Using automated exposure control and ad justment of the mA and/or kV according to patient size, radiation dose was kept as low as reasonably achievable to obtain optimal diagnostic quality images. DICOM format image data is available electro nically for review and comparison. FINDINGS: LOWER LUNGS: The visualized lower lungs are clear. LIVER: Homogeneous density without lesion. There is no dilation of the biliary tree. No calcified gallston es. SPLEEN: Normal size without lesion. PANCREAS: Within normal limits. KIDNEYS: Normal in size and shape. There is no mass, stone or hydronephrosis. ADRENAL GLANDS: Within normal limits. VASCULAR: There is no aortic aneurysm. Severe atherosclerotic changes are noted with calcification. BOWEL/MESENTERY: No oral contrast was given limiting the sensitivity of the exam. There are multiple loops of nondilat ed air-containing small bowel.. Gas and stool is noted segmentally in the colon. There is no focal in flammatory change.. There is no free intraperitoneal air or fluid. ABDOMINAL WALL: Within normal limits. RETROPERITONEUM: There is no lymphadenopathy. BLADDER: No wall thickening or mass. REPRODUCTIVE: Within normal limits. INGUINAL: There is no lymphadenopathy or hernia. MUSCULOSKELETAL: Osteopenia, degenerative change and mild scoliosis are present CONCLUSION: 1. Mildly nonspecific nonobstructive bowel gas pattern which may represent a gastroenteritis or mild ileus. 2. Unremarkable gallbladder. Henrique Matute MD on February 17, 2018 at 23:18 Board Certified Radiologist. This report was verified electronically.
[2018-02-18] VITALS: TEMP 99.1
--- NOTE | 2018-02-18 01:29 | RADRPT ---
EXAM DATE/TIME: 02/18/2018 00:12 [facility] COMPARISON: No previous studies available for comparison. INDICATIONS : Chest pain. MEDICAL HISTORY : Hypertension. Hypercholesterolemia. Myocardial infarction 2015. SURGICAL HISTORY : Tubal ligation. ENCOUNTER: Initial ACUITY: 4-6 days PAIN SCORE: 7/10 LOCATION: Right upper quadrant MEASUREMENTS: LIVER: 14.2 cm length COMMON DUCT: 3 mm RIGHT KIDNEY: 8.4 x 4.2 x 4.2 cm FINDINGS: LIVER: Normal echotexture without focal lesion or ductal dilatation. COMMON DUCT: No intraluminal mass or stone visualized. GALLBLADDER: Contains no stones, demonstrates no wall thickening or pericholecystic fluid. PANCREAS: The visualized portions are within normal limits. RIGHT KIDNEY: No evidence of hydronephrosis, stone, or mass. CONCLUSION: Unremarkable exam. The gallbladder is within normal limits with no evidence of cholel ithiasis. Henrique Matute MD on February 18, 2018 at 1:27 Board Certified Radiologist. This report was verified electronically.
[2018-02-18] MEDS ORDERED: ZOFR4TAB3 SL (01:38)
[2018-02-18] MEDS ORDERED: DICY10 PO (01:38)
--- NOTE | 2018-02-18 01:38 | PD ---
Physical Exam Date Seen by Provider: February 18, 2018 Time Seen by Provider: 22:00 Narrative I, Dr. Zapata, have reviewed the advance practice practitioner's documentation and am in agreement, met with the patient face to face, made the diagnosis, and the medical decision making was done by me. *My assessment and Findings: Patient initially seen by PA, please see PA note for further details. Here with abdominal discomfort, low-grade fevers, urinary symptoms, diarrhea as well. On evaluation, she is mildly tender in the upper abdomen or right upper quadrant without guarding or rebound. Workup was initiated in the ER. Initial EKG did not show any signs of acute ST changes although she has mild tachycardia. She was given pain medications, nausea medications, and IV fluids in the ER. Laboratory Tests Test 02/17/18 21:40 Red Blood Count 3.81 MIL/MM3 (4.00-5.30) Hematocrit 34.3 % (35.0-46.0) Neutrophils (%) (Auto) 85.4 % (16.0-70.0) Lymphocytes (%) (Auto) 6.9 % (9.0-44.0) Lymphocytes # (Auto) 0.6 TH/MM3 (1.0-4.8) Urine Protein 100 mg/dL (NEG-TRACE) Urine Occult Blood SMALL (NEG) Urine RBC 5 /hpf (0-3) Random Glucose 112 MG/DL (74-106) Sodium Level 134 MEQ/L (136-145) Chloride Level 95 MEQ/L (98-107) Estimat Glomerular Filtration Rate 83 ML/MIN (>89) Total Creatine Kinase 218 U/L (26-192) Troponin I LESS THAN 0.02 NG/ML Last 24 hours Impressions Chest X-Ray 02/17/182131 Signed Impressions: Service Date/Time: Saturday, February 17, 2018 21:44 - CONCLUSION: No acute disease. Aleksander Harrison Jr., MD Abdomen/Pelvis CT 02/17/182131 Signed Impressions: Service Date/Time: Saturday, February 17, 2018 22:58 - CONCLUSION: 1. Mildly nonspecific nonobstructive bowel gas pattern which may represent a gastroenteritis or mild ileus. 2. Unremarkable gallbladder. Henrique Matute MD Lab results are fairly unremarkable. There is no significant leukocytosis. CAT scan did not show any signs of acute intra-abdominal processes although she may have some underlying gastroenteritis or mild ileus. She is not vomiting in the ER and is resting comfortably on reevaluation at 1:30 AM. At this point, she states that her symptoms are subsiding. My plan would be to release her with follow-up to primary care doctor. Return for worsening in symptoms as needed. The plan has been discussed with her and she states understanding. Data Data Last Documented VS Vital Signs Date Time Temp Pulse Resp B/P (MAP) Pulse Ox O2 Delivery O2 Flow Rate FiO2 02/18/18 00:00 99.1 02/17/18 22:40 85 16 96 Room Air Orders Orders Ct Abd/Pel W Iv Contrast(Rout) (02/17/18 21:32) Us Abdomen Gallbladder (02/17/18 ) Chest, Single Ap (02/17/18 21:32) Sepsis Workup Initiated (02/17/18 ) Complete Blood Count With Diff (02/17/18 21:32) Comprehensive Metabolic Panel (02/17/18 21:32) Lactic Acid Sepsis Protocol (02/17/18 21:32) Urinalysis - C+S If Indicated (02/17/18 21:32) Blood Culture (02/17/18 21:32) Blood Glucose (02/17/18 21:32) Ecg Monitoring (02/17/18 21:32) Iv Access Insert/Monitor (02/17/18 21:32) Oximetry (02/17/18 21:32) Oxygen Administration (02/17/18 21:32) Electrocardiogram (02/17/18 21:32) Ckmb (Isoenzyme) Profile (02/17/18 21:32) Magnesium (Mg) (02/17/18 21:32) Prothrombin Time / Inr (Pt) (02/17/18 21:32) Act Partial Throm Time (Ptt) (02/17/18 21:32) Troponin I (02/17/18 21:32) Bilateral Bp Monitoring (02/17/18 21:32) Sodium Chlor 0.9% 1000 Ml Inj (Ns 1000 M (02/17/18 21:32) Morphine Inj (Morphine Inj) (02/17/18 21:45) Ondansetron Odt (Zofran Odt) (02/17/18 21:45) CKMB (02/17/18 21:40) CKMB% (02/17/18 21:40) Iohexol 350 Inj (Omnipaque 350 Inj) (02/17/18 23:06) Ed Discharge Order (02/18/18 01:35) Labs Laboratory Tests Test 02/17/18 21:40 White Blood Count 9.1 TH/MM3 Red Blood Count 3.81 MIL/MM3 Hemoglobin 11.7 GM/DL Hematocrit 34.3 % Mean Corpuscular Volume 90.2 FL Mean Corpuscular Hemoglobin 30.7 PG Mean Corpuscular Hemoglobin Concent 34.0 % Red Cell Distribution Width 12.4 % Platelet Count 235 TH/MM3 Mean Platelet Volume 7.4 FL Neutrophils (%) (Auto) 85.4 % Lymphocytes (%) (Auto) 6.9 % Monocytes (%) (Auto) 5.7 % Eosinophils (%) (Auto) 0.3 % Basophils (%) (Auto) 1.7 % Neutrophils # (Auto) 7.7 TH/MM3 Lymphocytes # (Auto) 0.6 TH/MM3 Monocytes # (Auto) 0.5 TH/MM3 Eosinophils # (Auto) 0.0 TH/MM3 Basophils # (Auto) 0.2 TH/MM3 CBC Comment DIFF FINAL Differential Comment Prothrombin Time 10.5 SEC Prothromb Time International Ratio 1.0 RATIO Activated Partial Thromboplast Time 26.4 SEC Urine Color LIGHT-YELLOW Urine Turbidity CLEAR Urine pH 7.5 Urine Specific [place] 1.008 Urine Protein 100 mg/dL Urine Glucose (UA) NEG mg/dL Urine Ketones NEG mg/dL Urine Occult Blood SMALL Urine Nitrite NEG Urine Bilirubin NEG Urine Urobilinogen LESS THAN 2.0 MG/DL Urine Leukocyte Esterase NEG Urine RBC 5 /hpf Urine WBC LESS THAN 1 /hpf Microscopic Urinalysis Comment CATH-CULT NOT IND Blood Urea Nitrogen 8 MG/DL Creatinine 0.81 MG/DL Random Glucose 112 MG/DL Total Protein 7.4 GM/DL Albumin 3.9 GM/DL Calcium Level 8.9 MG/DL Magnesium Level 1.7 MG/DL Alkaline Phosphatase 98 U/L Aspartate Amino Transf (AST/SGOT) 18 U/L Alanine Aminotransferase (ALT/SGPT) 13 U/L Total Bilirubin 0.4 MG/DL Sodium Level 134 MEQ/L Potassium Level 3.9 MEQ/L Chloride Level 95 MEQ/L Carbon Dioxide Level 26.8 MEQ/L Anion Gap 12 MEQ/L Estimat Glomerular Filtration Rate 83 ML/MIN Lactic Acid Level 1.3 mmol/L Total Creatine Kinase 218 U/L Creatine Kinase MB 2.1 NG/ML Creatine Kinase MB % 1.0 % Troponin I LESS THAN 0.02 NG/ML [facility] Medical Record Reviewed: Yes Supervised Visit with RODOLFO: Yes Diagnosis Primary Impression: Abdominal pain Med/Other Pt SpecificInfo: Prescription(s) given Scripts Ondansetron Odt (Zofran Odt) 4 Mg Tab 4 MG SL Q6HR Y for Nausea/Vomiting, #7 TAB 0 Refills Prov: Carson Zapata MD 02/18/18 Dicyclomine (Bentyl) 10 Mg Cap 10 MG PO TID Y for Bowel Management, #12 CAP 0 Refills Prov: Carson Zapata MD 02/18/18 Disposition: 01 DISCHARGE HOME Condition: Stable Carson Zapata MD February 18, 2018 01:38
--- NOTE | 2018-02-18 18:21 | EKG ---
Date Performed: 02/17/2018 Time Performed: 21:29:10 PTAGE: 77 years EKG: SINUS TACHYCARDIA POSSIBLE RIGHT ATRIAL ENLARGEMENT POSSIBLE LEFT ATRIAL ENLARGEMENT MODERA TE ST DEPRESSION ABNORMAL ECG PREVIOUS TRACING : 08/28/2017 12.34 Compared to previous tracing, rate faster DOCTOR: Marcus Stephen Interpretating Date/Time 02/18/2018 18:21:09
== END 2018-02-18 02:22 | disposition home or self-care (01) ==
LOC: NEPE 21:17
DX: R10.9 Unspecified abdominal pain (principal); R05 Cough; F17.200 Nicotine dependence, unspecified, uncomplicated; R00.0 Tachycardia, unspecified
CPT/HCPCS: 71045; 74177; 76705; 80053; 81001; 82550; 82552; 83605; 83735; 84484; 85025; 85610; 85730; 87040; 93005; 96361; 96374; 99285; J2270; J7030; Q9967

== ENCOUNTER 2018-03-02 14:24 | Emergency (ER) | payer MEDICARE ==
[~2018-03-02] VITALS: Ht 163.8 cm; Wt 60.0 kg
[~2018-03-02 14:24] MED LIST changes: -ASPI81TA23 PO; +DICY10 PO; -LISI-515 PO; -METO25TA3 PO; +ZOFR4TAB3 SL
[2018-03-02 14:38] VITALS: BP 152/65; PULSE 86; RESP 24; TEMP 99.5; O2SAT 99
--- NOTE | 2018-03-02 15:29 | PD ---
HPI Chief Complaint: Chest Pain Time Seen by Provider: 15:18 Travel History International Travel<30 days: No Contact w/Intl Traveler<30days: No Traveled to known affect area: No History of Present Illness HPI This is a 77-year-old female who has a history of a heart attack in the past who presents to the emergency department with onset of sternal chest discomfort feeling like a stinging sensation that started when she woke up this morning at 9 AM, intermittent, moderate severity, relieved after she belched in the emergency department waiting room. She says she feels a lot better. She did have some shortness of breath with it. The pain is nonradiating. She has never had pain like this before. PFSH Past Medical History Heart Rhythm Problems: No Cardiac Catheterization: Yes Cardiovascular Problems: Yes High Cholesterol: Yes Congestive Heart Failure: Yes Diabetes: Yes (HX OF) Patient Takes Glucophage: No Diminished Hearing: No Heparin Induced Thrombocytopen: No Hypertension: Yes Immunizations Current: Yes Myocardial Infarction: Yes ?: Not Tubal Ligation: Yes Past Surgical History Cardiac Surgery: Yes Coronary Artery Bypass Graft: No Coronary Stent: Yes Social History Alcohol Use: No Tobacco Use: Yes (1/2 ppW) Substance Use: No Allergies-Medications (Allergen,Severity, Reaction): Coded Allergies: No Known Allergies (Verified Allergy, Unknown, 02/17/18) Reported Meds & Prescriptions Reported Meds & Active Scripts Active Zofran Odt (Ondansetron Odt) 4 Mg Tab 4 Mg SL Q6HR PRN Bentyl (Dicyclomine HCl) 10 Mg Cap 10 Mg PO TID PRN Review of Systems Except as stated in HPI: all other systems reviewed are Neg Physical Exam Narrative GENERAL:Well appearing, no acute distress SKIN: Focused skin assessment warm and dry. HEAD: Atraumatic. Normocephalic. EYES: Pupils equal and round. No injection or drainage. ENT: Moist mucous membranes NECK: Trachea midline. CARDIOVASCULAR: Regular rate and rhythm. No murmur appreciated. RESPIRATORY: Clear to auscultation. Breath sounds equal bilaterally. GASTROINTESTINAL: Abdomen soft, non-tender, nondistended. MUSCULOSKELETAL: No obvious deformities. NEUROLOGICAL: Awake and alert. No obvious cranial nerve deficits. Moving all extremities. PSYCHIATRIC: Appropriate mood and affect; insight and judgment normal. Data Data Last Documented VS Vital Signs Date Time Temp Pulse Resp B/P (MAP) Pulse Ox O2 Delivery O2 Flow Rate FiO2 03/02/18 14:38 99.5 86 24 152/65 (94) 99 Orders Orders Electrocardiogram (03/02/18 ) MDM Medical Decision Making Medical Screen Exam Complete: Yes Emergency Medical Condition: Yes Differential Diagnosis Myocardial infarction, pulmonary embolism, pneumonia, pneumothorax Narrative Course This is a 77-year-old female who has a history of a stent who presents to the emergency department with chest pain this morning. Currently she feels a lot better after she belched in the emergency department and she thinks this was all GI related. I expressed my concern that we should perform blood work and potentially admit her to the hospital for observation given her history. She does not want to stay. She expressed understanding that she is risking having a heart attack or but she wants to leave. I think she is capable of making her own decisions. Patient was discharged AGAINST MEDICAL ADVICE. Diagnosis Primary Impression: Chest pain Qualified Codes: R07.9 - Chest pain, unspecified Patient Instructions: General Instructions Additional Instructions: Return to the emergency department if you at all become concerned or develop chest pain. Med/Other Pt SpecificInfo: No Change to Meds Disposition: 07 AGAINST MEDICAL ADVICE Condition: Maria Isabel Lucas MD March 02, 2018 15:29
--- NOTE | 2018-03-03 19:39 | EKG ---
Date Performed: 03/02/2018 Time Performed: 14:49:17 PTAGE: 77 years EKG: Sinus rhythm MINIMAL VOLTAGE CRITERIA FOR LVH, CONSIDER NORMAL VARIANT NONSPECIFIC T-WAVE ABNORMALITY BORDERLINE ECG Compared to PREVIOUS TRACING , the patient is no longer tachycardic. PREVIOUS TRACING DOCTOR: Najma Mendiola Interpretating Date/Time 03/03/2018 19:38:41
== END 2018-03-02 15:36 | disposition left against medical advice (07) ==
LOC: NEPC 14:24
DX: R07.9 Chest pain, unspecified (principal); R06.02 Shortness of breath; R94.31 Abnormal electrocardiogram [ECG] [EKG]; I11.0 Hypertensive heart disease with heart failure; I50.9 Heart failure, unspecified; E11.9 Type 2 diabetes mellitus without complications; E78.00 Pure hypercholesterolemia, unspecified; I25.2 Old myocardial infarction; F17.200 Nicotine dependence, unspecified, uncomplicated
CPT/HCPCS: 93005

== ENCOUNTER 2018-04-04 10:25 | Emergency (ER) | payer MEDICARE ==
[~2018-04-04] VITALS: Ht 162.6 cm; Wt 55.0 kg
[2018-04-04 10:30] VITALS: BP 145/66; PULSE 93; RESP 16; TEMP 98.6; O2SAT 100
[2018-04-04 10:54] VITALS: RESP 18; O2SAT 98
[2018-04-04] MEDS ORDERED: SODIUM CHLORIDE 0.9% FLUSH 10 ML FLUSH IVF PRN (11:00)
[2018-04-04] MEDS ORDERED: ASPIRIN 81 MG CHEW TAB PO ONE (11:00)
--- NOTE | 2018-04-04 11:04 | PD ---
HPI Chief Complaint: Chest Pain Time Seen by Provider: 10:41 Travel History International Travel<30 days: No Contact w/Intl Traveler<30days: No Traveled to known affect area: No History of Present Illness HPI Patient is a 77-year-old female with history of CHF, diabetes, hyperlipidemia, coronary disease with stents, hypertension, presents the emergency room with her daughter for evaluation of chest pain. Overall, patient is a poor historian and does have history of dementia. She is alert to person and place, not time. Patient reports that she began to have chest pain since last night. Patient reports that pain is substernal, reports that pain was constant and nonradiating in nature. Patient denies any shortness of breath or diaphoresis with her chest pain. Patient is really unable to describe her chest pain, patient's daughter who is at bedside reports history of Alzheimer's dementia. Daughter reports that patient has had a productive cough for the past week and a half, she is a chronic smoker, reports that patient has refused to go to see a physician. Reports no fever or chills, no nausea or vomiting. Patient reports that she has resolution of chest pain at this time. PFSH Past Medical History Heart Rhythm Problems: No Cardiac Catheterization: Yes Cardiovascular Problems: Yes High Cholesterol: Yes Congestive Heart Failure: Yes Diabetes: Yes Patient Takes Glucophage: No Diminished Hearing: No Heparin Induced Thrombocytopen: No Hypertension: Yes Medical other: Yes Immunizations Current: Yes Myocardial Infarction: Yes Tetanus Vaccination: > 5 Years Influenza Vaccination: Yes ?: Not Menopausal: Yes : 6 Para: 6 Tubal Ligation: Yes Past Surgical History Cardiac Surgery: Yes Coronary Artery Bypass Graft: No Coronary Stent: Yes Social History Alcohol Use: No Tobacco Use: Yes (1/2 ppW) Substance Use: No Allergies-Medications (Allergen,Severity, Reaction): Coded Allergies: No Known Allergies (Verified Allergy, Unknown, 04/04/18) Reported Meds & Prescriptions Reported Meds & Active Scripts Active Zofran Odt (Ondansetron Odt) 4 Mg Tab 4 Mg SL Q6HR PRN Bentyl (Dicyclomine HCl) 10 Mg Cap 10 Mg PO TID PRN Review of Systems General / Constitutional: No: Fever, Chills Eyes: No: Visual changes HENT: No: Headaches Cardiovascular: Positive: Chest Pain or Discomfort Respiratory: Positive: Cough, No: Shortness of Breath, Wheezing Gastrointestinal: No: Abdominal Pain Genitourinary: No: Dysuria Musculoskeletal: No: Pain Skin: No Rash Neurologic: No: Weakness Psychiatric: No: Depression Endocrine: No: Polydipsia Hematologic/Lymphatic: No: Easy Bruising Physical Exam Narrative GENERAL: Mild distress SKIN: Focused skin assessment warm/dry. HEAD: Atraumatic. Normocephalic. EYES: Pupils equal and round. No scleral icterus. No injection or drainage. ENT: No nasal bleeding or discharge. Mucous membranes pink and moist. NECK: Trachea midline. No JVD. CARDIOVASCULAR: Regular rate and rhythm. No murmur appreciated. RESPIRATORY: No accessory muscle use. Clear to auscultation. Breath sounds equal bilaterally. GASTROINTESTINAL: Abdomen soft, non-tender, nondistended. Hepatic and splenic margins not palpable. MUSCULOSKELETAL: No obvious deformities. No clubbing. No cyanosis. No edema. NEUROLOGICAL: Awake and alert. No obvious cranial nerve deficits. Motor grossly within normal limits. Normal speech. PSYCHIATRIC: Appropriate mood and affect; insight and judgment normal. Data Data Last Documented VS Vital Signs Date Time Temp Pulse Resp B/P (MAP) Pulse Ox O2 Delivery O2 Flow Rate FiO2 04/04/18 10:55 89 17 98 Room Air 04/04/18 10:54 04/04/18 10:30 98.6 Orders Orders Electrocardiogram (04/04/18 10:47) B-Type Natriuretic Peptide (04/04/18 10:47) Ckmb (Isoenzyme) Profile (04/04/18 10:47) Complete Blood Count With Diff (04/04/18 10:47) Comprehensive Metabolic Panel (04/04/18 10:47) Magnesium (Mg) (04/04/18 10:47) Prothrombin Time / Inr (Pt) (04/04/18 10:47) Act Partial Throm Time (Ptt) (04/04/18 10:47) Troponin I (04/04/18 10:47) Lipase (04/04/18 10:47) Chest, Single Ap (04/04/18 10:47) Ecg Monitoring (04/04/18 10:47) Iv Access Insert/Monitor (04/04/18 10:47) Oximetry (04/04/18 10:47) Aspirin Chew (Aspirin Chew) (04/04/18 11:00) Sodium Chloride 0.9% Flush (Ns Flush) (04/04/18 11:00) Blood Culture (04/04/18 10:47) Labs Laboratory Tests Test 04/04/18 11:00 White Blood Count 3.8 TH/MM3 Red Blood Count 3.90 MIL/MM3 Hemoglobin 11.5 GM/DL Hematocrit 34.6 % Mean Corpuscular Volume 88.7 FL Mean Corpuscular Hemoglobin 29.4 PG Mean Corpuscular Hemoglobin Concent 33.2 % Red Cell Distribution Width 12.4 % Platelet Count 299 TH/MM3 Mean Platelet Volume 7.3 FL Neutrophils (%) (Auto) 61.6 % Lymphocytes (%) (Auto) 19.0 % Monocytes (%) (Auto) 13.6 % Eosinophils (%) (Auto) 4.4 % Basophils (%) (Auto) 1.4 % Neutrophils # (Auto) 2.3 TH/MM3 Lymphocytes # (Auto) 0.7 TH/MM3 Monocytes # (Auto) 0.5 TH/MM3 Eosinophils # (Auto) 0.2 TH/MM3 Basophils # (Auto) 0.1 TH/MM3 CBC Comment DIFF FINAL Differential Comment Prothrombin Time 11.0 SEC Prothromb Time International Ratio 1.1 RATIO Activated Partial Thromboplast Time 27.2 SEC Blood Urea Nitrogen 10 MG/DL Creatinine 0.84 MG/DL Random Glucose 115 MG/DL Total Protein 7.5 GM/DL Albumin 3.2 GM/DL Calcium Level 9.1 MG/DL Magnesium Level 2.0 MG/DL Alkaline Phosphatase 113 U/L Aspartate Amino Transf (AST/SGOT) 23 U/L Alanine Aminotransferase (ALT/SGPT) 15 U/L Total Bilirubin 0.4 MG/DL Sodium Level 135 MEQ/L Potassium Level 4.1 MEQ/L Chloride Level 102 MEQ/L Carbon Dioxide Level 24.9 MEQ/L Anion Gap 8 MEQ/L Estimat Glomerular Filtration Rate 79 ML/MIN Total Creatine Kinase 77 U/L Troponin I LESS THAN 0.02 NG/ML Lipase 61 U/L MDM Medical Decision Making Medical Screen Exam Complete: Yes Emergency Medical Condition: Yes Medical Record Reviewed: Yes Interpretation(s) EKG at 1049: Normal sinus rhythm at 70 bpm, QT/QTc 375/409, patient with nonspecific T-wave changes -EKG similar to previous EKGs. Differential Diagnosis ACS, arrhythmia, pneumonia, electrolyte abnormality Narrative Course During the course of the patients emergency department visit, the patients history, examination, and differential diagnosis were reviewed with the patient. The patient was placed on a mail order sorter with oximetry and frequent blood pressure monitoring. The patient had an IV access obtained and blood work sent for analysis. The patient was initially provided aspirin The patients laboratory studies were reviewed and remarkable for CBC & BMP Diagram 04/04/18 11:00 Total Protein 7.5, Albumin 3.2 L, Calcium Level 9.1, Magnesium Level 2.0, Alkaline Phosphatase 113, Aspartate Amino Transf (AST/SGOT) 23, Alanine Aminotransferase (ALT/SGPT) 15, Total Bilirubin 0.4 Troponin less than 0.02 Radiology studies were reviewed and remarkable for Last Impressions Chest X-Ray 04/04/18 1047 Signed Impressions: CONCLUSION: Negative examination. Discussed with patient need for admission to the hospital for chest pain rule out, patient currently refusing admission to the hospital. Patient requesting to leave AGAINST MEDICAL ADVICE. Patient has 2 family members at bedside - requesting that Robertson act patient and restrain her and force her to have a workup and inpatient hospitalization. Patient is alert to person and place not time, patient is capable of making decisions. They understand that I cannot force patient to stay against her will. Lakesha Mckinnon DO Apr 04, 2018 11:04
[2018-04-04 11:22] LABS: AUTOMATED NEUTROPHIL # 2.3 TH/MM3 (1.8-7.7); BASOPHIL # 0.1 TH/MM3 (0-0.2); BASOPHIL % 1.4 % (0.0-2.0); EOSINOPHIL # 0.2 TH/MM3 (0-0.4); EOSINOPHIL % 4.4 % (0.0-4.0); HEMATOCRIT 34.6 % (35.0-46.0); HEMOGLOBIN 11.5 GM/DL (11.6-15.3); LYMPHOCYTE # 0.7 TH/MM3 (1.0-4.8); MEAN CELL VOLUME 88.7 FL (80.0-100.0); MEAN CORPUSCULAR HEMOGLOBIN 29.4 PG (27.0-34.0); MEAN CORPUSCULAR HGB CONC 33.2 % (32.0-36.0); MEAN PLATELET VOLUME 7.3 FL (7.0-11.0); MONO % 13.6 % (0.0-8.0); MONOCYTE # 0.5 TH/MM3 (0-0.9); NEUT % 61.6 % (16.0-70.0); PLATELET COUNT 299 TH/MM3 (150-450); RED CELL DISTRIBUTION WIDTH 12.4 % (11.6-17.2); WHITE BLOOD COUNT 3.8 TH/MM3 (4.0-11.0)
--- NOTE | 2018-04-04 11:22 | RADRPT ---
EXAM DATE: 04/04/2018 11:19 AM EDT AGE/SEX: 77 years / Female INDICATIONS: Chest pain, cough CLINICAL DATA: This is the patient's initial encounter. Patient reports that signs and symptoms have been present for 1 week and indicates a pain score of 2/10. MEDICAL/SURGICAL HISTORY: . hear attack Coronary artery stent. COMPARISON: [facility] [place]ST [place] AP, 02/17/2018. . FINDINGS: A single AP view of the chest demonstrates the lungs to be symmetrically aerated without evidence of mass, infiltrate or effusion. The cardiomediastinal contours are unremarkable. Osseous structures a re intact. CONCLUSION: Negative examination. Electronically signed by: Rhtet Bell MD 04/04/2018 11:21 AM EDT
[2018-04-04 11:34] LABS: INTERNATIONAL NORMALIZED RATIO 1.1 RATIO
[2018-04-04 11:40] LABS: ALT (GPT) 15 U/L (10-53)
[2018-04-04 11:41] LABS: ALBUMIN 3.2 GM/DL (3.4-5.0); AST (GOT) 23 U/L (15-37); BICARBONATE 24.9 MEQ/L (21.0-32.0); BLOOD UREA NITROGEN 10 MG/DL (7-18); CALCIUM 9.1 MG/DL (8.5-10.1); CHLORIDE 102 MEQ/L (98-107); CREATININE 0.84 MG/DL (0.50-1.00); GLOMERULAR FILTRATION RATE 79 ML/MIN (>89); GLUCOSE,RANDOM 115 MG/DL (74-106); SODIUM (NA) 135 MEQ/L (136-145)
[2018-04-04 11:47] LABS: ALKALINE PHOSPHATASE 113 U/L (45-117); TOTAL BILIRUBIN ADULT 0.4 MG/DL (0.2-1.0); TOTAL PROTEIN 7.5 GM/DL (6.4-8.2); TROPONIN I LESS THAN 0.02 NG/ML (0.02-0.05)
--- NOTE | 2018-04-05 21:49 | EKG ---
Date Performed: 04/04/2018 Time Performed: 10:49:17 PTAGE: 77 years EKG: Sinus rhythm WITH OCCASIONAL VENTRICULAR PREMATURE COMPLEXES NONSPECIFIC T-WAVE ABNORMALITY BORDERLINE ECG PREVIOUS TRACING : 03/02/2018 14.49 Since the previous tracing, no significant change noted DOCTOR: Marcus Stephen Interpretating Date/Time 04/05/2018 21:47:18
== END 2018-04-04 13:07 | disposition left against medical advice (07) ==
LOC: NEPC 10:25
DX: R07.9 Chest pain, unspecified (principal); R94.31 Abnormal electrocardiogram [ECG] [EKG]; R05 Cough; Z53.20 Procedure and treatment not carried out because of patient's decision for unspecified reasons; I11.0 Hypertensive heart disease with heart failure; I50.9 Heart failure, unspecified; I25.2 Old myocardial infarction; F03.90 Unspecified dementia, unspecified severity, without behavioral disturbance, psychotic disturbance, mood disturbance, and anxiety; E11.9 Type 2 diabetes mellitus without complications; E78.00 Pure hypercholesterolemia, unspecified; F17.210 Nicotine dependence, cigarettes, uncomplicated; Z95.5 Presence of coronary angioplasty implant and graft; Z79.899 Other long term (current) drug therapy
CPT/HCPCS: 71045; 80053; 82550; 83690; 83735; 83880; 84484; 85025; 85610; 85730; 87040; 93005

== ENCOUNTER 2018-07-11 17:42 | Observation (INO) ==
--- NOTE | 2018-07-11 19:58 | XR ---
EXAM DATE: 07/11/2018 7:27 PM EDT AGE/SEX: 77 years / Female INDICATIONS: . Lower chest pain. CLINICAL DATA: This is the patient's initial encounter. Patient reports that signs and symptoms have been present for 1 week and indicates a pain score of 10/10. MEDICAL/SURGICAL HISTORY: . Myocardial infarction. None. COMPARISON: [facility] – [place], CHEST SINGLE AP, 04/04/2018. . FINDINGS: PA and lateral views of the chest demonstrate the lungs to be symmetrically aerated without evidence of mass, infiltrate or effusion. The cardiomediastinal contours are unremarkable. Osseous structures are intact. CONCLUSION: No evidence of acute cardiopulmonary disease. Electronically signed by: Rhett Green MD 07/11/2018 7:57 PM EDT
[2018-07-11 21:18] LABS: Baso % (Auto) 0.4 % (0.0-2.0); Eos % (Auto) 0.1 % (0.0-4.0); Hematocrit 38.8 % (35.0-46.0); Hemoglobin 12.9 gm/dL (11.6-15.3); Lymph # (Auto) 0.6 th/mm3 (1.0-4.8); Lymph % (Auto) 6.7 % (9.0-44.0); Mean Corpuscular HGB Conc 33.3 % (32.0-36.0); Mean Corpuscular Hemoglobin 30.2 pg (27.0-34.0); Mean Corpuscular Volume 90.8 fL (80.0-100.0); Mean Platelet Volume 7.7 fL (7.0-11.0); Mono # (Auto) 0.5 th/mm3 (0.0-0.9); Mono % (Auto) 5.8 % (0.0-8.0); Neut # (Auto) 7.5 th/mm3 (1.8-7.7); Platelet Count 254 th/mm3 (150-450); Red Blood Count 4.27 mil/mm3 (4.00-5.30); Red Cell Distribution Width 13.7 % (11.6-17.2); White Blood Count 8.7 th/mm3 (4.0-11.0)
[2018-07-11 21:49] LABS: Anion Gap 10 meq/L (5-15); Blood Urea Nitrogen 9 mg/dL (7-18); Calcium 9.8 mg/dL (8.5-10.1); Carbon Dioxide 26.4 meq/L (21.0-32.0); Chloride 95 meq/L (98-107); Glomerular Filtration Rate 75 mL/min (>89); Glucose,Random 105 mg/dL (74-106); Potassium 3.7 meq/L (3.5-5.1); Sodium 131 meq/L (136-145)
[2018-07-11 21:56] LABS: Creatine Kinase 90 U/L (26-192)
--- NOTE | 2018-07-11 22:13 | ED ---
HPI General Chief complaint: Respiratory Symptoms Stated complaint: weakness Time Seen by Provider: 07/11/18 21:54 Source: patient and family Mode of arrival: ambulatory Limitations: altered mental status (some memory problems with a history diagnosis of dementia) History of Present Illness HPI narrative: The patient is a 77 year old female who presents to the [facility] emergency department with a history of acting like she was unsteady on her feet this morning according to her daughter. The patient has also been having a cough since Tuesday that has been productive of clear sputum. She reports having some dyspnea on exertion. She reports having intermittent chest pain, however no chest pain currently. The patient does have a prior history of coronary artery disease with myocardial infarction in 2012 that is post stent placement. The patient has a history of continuing to smoke 1/2 pack of cigarettes per day. She is also noncompliant with any medication other than taking a low dose aspirin daily. She refuses to go to the doctor on a regular basis. She last saw her primary care physician approximately a year ago according to her daughter. The patient does reside with family. She denies having any nausea, vomiting, or diarrhea. She reports that she last moved her bowels earlier today. She denies having any known fevers. She denies having any lower extremity edema, calf pain, or erythema. She denies having any prior history of DVT or PE. Her daughter reports that she did notice her having urinary frequency earlier today, however the patient denies having any dysuria or urinary urgency. On review of systems otherwise, the patient denies having any neck pain, vomiting, diarrhea, urinary symptoms, or neurologic symptoms. The patient reports that today she does have a cramping sensation in the abdomen. She reports that she has is because she has not eaten all day. She reports that she has had a diminished appetite for the last 3 months. Related Data Home Medications Medication Instructions Recorded Confirmed aspirin [Aspir-81] 81 mg PO DAILY 07/11/18 07/11/18 Previous Rx's Medication Instructions Recorded albuterol sulfate [ProAir HFA] 2 inh INHALATION Q4-6H PRN #8 g 07/12/18 azithromycin 250 mg PO DAILY 4 Days #4 tab 07/12/18 prednisone 20 mg PO BID 5 Days #10 tab 07/12/18 Allergies Allergy/AdvReac Type Severity Reaction Status Date / Time No Known Allergies Allergy Unknown none Uncoded 07/11/18 22:51 Review of Systems ROS: all other systems reviewed are negative PMFSH Social History Social History Substance History: No History of Abuse Smoking Status: Current every day smoker Tobacco Type: Cigarettes Packs Per Day: 0.5 Cigarettes Per Day: 10.0 How Often Do You Have a Drink Containing Alcohol: Never Recent Travel in [facility] within the Last 8 Weeks: No Recent Out of Country Travel within the Last 8 Weeks: No Exam Const General: cooperative, no acute distress and well developed Nutritional Appearance: well nourished Orientation: alert, awake and oriented x3 HENMT Head: normocephalic and atraumatic Nose: no nasal discharge and no epistaxis Mouth: moist mucous membranes Throat: posterior oropharynx normal and uvula midline Eyes Sclera: normal sclerae Pupils: PERRL Neck Neck: no meningeal signs, trachea midline and no JVD Resp Effort & Inspection: no use of accessory muscles Auscultation: no crackles, no rhonchi and wheezes (Soft expiratory wheezes audible bilaterally, coarse breath sounds, occasional productive sounding cough on exam.) Cardio Rate: tachycardic (Sinus tachycardia in the low 100s, no pulse deficits to the extremities on simultaneous auscultation and palpation of his radial artery) Rhythm: regular rhythm Heart Sounds: no gallops, no murmurs and no rubs GI Inspection: non-distended Palpation: soft, no hepatosplenomegaly, no guarding, not rigid and tender in the epigastrum; not in the LLQ, not in the RLQ, not in the LUQ, not in the RUQ, not at McBurney's point, not suprapubicly, Desouza's sign negative and with no rebound tenderness Auscultation: normal bowel sounds Back/Spine/Pelvis Back: no CVA tenderness Skin General: dry skin (warm) Neuro General: alert, awake, oriented x3 and other (Grossly nonfocal.) Speech: speech normal Motor: no movement abnormalities noted Extrem General: normal to inspection (2+ pulses in all 4 extremities.), calf tenderness , no clubbing, no cyanosis and no edema Psych Mood: congruent mood Affect: normal affect Judgment: judgment good Course Initial Documented Vital Signs Temperature 99.5 F 07/11/18 18:10 Pulse Rate 104 H 07/11/18 18:10 Respiratory Rate 16 07/11/18 18:10 Blood Pressure 179/83 H 07/11/18 18:10 Pulse Oximetry 96 07/11/18 18:10 Last Documented Vital Signs Temperature 99.5 F 07/11/18 18:10 Pulse Rate 112 H 07/11/18 23:20 Respiratory Rate 18 07/11/18 23:20 Blood Pressure 161/72 H 07/11/18 23:00 Pulse Oximetry 98 07/11/18 23:00 Medical Decision Making MDM Narrative Medical decision making narrative: During the course of the patient's emergency department visit, the patient's history, examination, and differential diagnosis were reviewed with the patient. The patient was placed on a court recording monitor with oximetry and frequent blood pressure monitoring. The patient had IV access obtained and blood work sent for analysis. A diagnostic evaluation was started regarding the patient's cough, congestion, and dyspnea on exertion. The patient was initially provided Solu-Medrol 125 mg IV, DuoNeb x1. The patient on reexamination reports improvement in her cough and shortness of breath. The patient no longer has any wheezing. Diagnostic studies are remarkable for normal white count of 8.7, hemoglobin 12.9 , platelets 254, with 87 neutrophils, d-dimer elevated at 1.54, CTA to rule out PE was ordered. Chemistry is remarkable for sodium of 131, chloride 95, GFR of 75, LFTs within normal limits, initial set of cardiac enzymes are negative, BNP is 105, lipase 61. A chest x-ray showed no acute abnormality. CTA to rule out PE shows no evidence of pulmonary embolism, mild diffuse upper lobe predominant centrilobular emphysema, moderate coronary artery calcifications. The patient from a respiratory standpoint and COPD exacerbation is completely resolved. The patient was given Zithromax p.o. x1 and will complete a course of Z-Anirudh. The patient will also be given a prescription for a pro-air inhaler and prednisone to complete over the next 5 days. I do however have continued concern about her history of coronary artery disease and reports of recent intermittent chest pain associated with noncompliance with medication as well as noncompliance with regular medical follow-up. The patient and the patient's family are agreeable with the plan at this time to proceed with admission to the chest pain center for rule out serial cardiac enzyme protocol followed by stress testing. The patient's results were discussed with the patient, including the plan of care. I explained that further testing and/ or monitoring is indicated based on the patient's history, examination, and/ or laboratory findings. Therefore, I recommended admission for additional evaluation. The patient expressed understanding and was agreeable with this plan. The patient was admitted to the hospital in stabke condition and sent to a bed under the care of the [facility]. Medical Screen Exam Complete: Yes Emergency Medical Condition: Yes Differential Diagnosis Differential Diagnosis: Bronchitis, versus COPD exacerbation, versus pneumonia, versus congestive heart failure, versus acute coronary syndrome, versus pneumothorax Medical Records Medical records reviewed: Yes I reviewed the patient's medical records. Lab Data Lab results reviewed: Yes I reviewed the patient's lab results. Result diagrams: 07/11/18 20:05 07/11/18 20:05 Lab Results 07/11/18 07/11/18 07/11/18 Range/Units 20:05 20:05 22:20 WBC 8.7 (4.0-11.0) th/mm3 RBC 4.27 (4.00-5.30) mil/mm3 Hgb 12.9 (11.6-15.3) gm/dL Hct 38.8 (35.0-46.0) % MCV 90.8 (80.0-100.0) fL MCH 30.2 (27.0-34.0) pg MCHC 33.3 (32.0-36.0) % RDW 13.7 (11.6-17.2) % Plt Count 254 (150-450) th/mm3 MPV 7.7 (7.0-11.0) fL Neut % (Auto) 87.0 H (16.0-70.0) % Lymph % (Auto) 6.7 L (9.0-44.0) % [place] % (Auto) 5.8 (0.0-8.0) % Eos % (Auto) 0.1 (0.0-4.0) % Baso % (Auto) 0.4 (0.0-2.0) % Neut # (Auto) 7.5 (1.8-7.7) th/mm3 Lymph # (Auto) 0.6 L (1.0-4.8) th/mm3 [place] # (Auto) 0.5 (0.0-0.9) th/mm3 Eos # (Auto) 0.0 (0.0-0.4) th/mm3 Baso # (Auto) 0.0 (0.0-0.2) th/mm3 WBC Differential . Differential Comment Auto diff final D-Dimer Quant (PE/DVT) (0.00-0.50) mg/L FEU Sodium 131 L (136-145) meq/L Potassium 3.7 (3.5-5.1) meq/L Chloride 95 L (98-107) meq/L Carbon Dioxide 26.4 (21.0-32.0) meq/L Anion Gap 10 (5-15) meq/L BUN 9 (7-18) mg/dL Creatinine 0.88 (0.50-1.00) mg/dL Estimated GFR 75 L (>89) mL/min Random Glucose 105 (74-106) mg/dL Calcium 9.8 (8.5-10.1) mg/dL Total Bilirubin 0.5 (0.2-1.0) mg/dL Direct Bilirubin 0.2 (0.0-0.2) mg/dL Indirect Bilirubin 0.3 (0.0-0.8) mg/dL AST 21 (15-37) U/L ALT 13 (10-53) U/L Alkaline Phosphatase 107 (45-117) U/L Total Creatine Kinase 90 (26-192) U/L Troponin I Less than 0.02 L (0.02-0.05) ng/mL B-Natriuretic Peptide (0-100) pg/mL Total Protein 8.4 H (6.4-8.2) g/dL Albumin 4.2 (3.4-5.0) g/dL Lipase 61 L (73-393) U/L 07/11/18 07/11/18 Range/Units 22:20 22:20 WBC (4.0-11.0) th/mm3 RBC (4.00-5.30) mil/mm3 Hgb (11.6-15.3) gm/dL Hct (35.0-46.0) % MCV (80.0-100.0) fL MCH (27.0-34.0) pg MCHC (32.0-36.0) % RDW (11.6-17.2) % Plt Count (150-450) th/mm3 MPV (7.0-11.0) fL Neut % (Auto) (16.0-70.0) % Lymph % (Auto) (9.0-44.0) % [place] % (Auto) (0.0-8.0) % Eos % (Auto) (0.0-4.0) % Baso % (Auto) (0.0-2.0) % Neut # (Auto) (1.8-7.7) th/mm3 Lymph # (Auto) (1.0-4.8) th/mm3 [place] # (Auto) (0.0-0.9) th/mm3 Eos # (Auto) (0.0-0.4) th/mm3 Baso # (Auto) (0.0-0.2) th/mm3 WBC Differential Differential Comment D-Dimer Quant (PE/DVT) 1.54 H (0.00-0.50) mg/L FEU Sodium (136-145) meq/L Potassium (3.5-5.1) meq/L Chloride (98-107) meq/L Carbon Dioxide (21.0-32.0) meq/L Anion Gap (5-15) meq/L BUN (7-18) mg/dL Creatinine (0.50-1.00) mg/dL Estimated GFR (>89) mL/min Random Glucose (74-106) mg/dL Calcium (8.5-10.1) mg/dL Total Bilirubin (0.2-1.0) mg/dL Direct Bilirubin (0.0-0.2) mg/dL Indirect Bilirubin (0.0-0.8) mg/dL AST (15-37) U/L ALT (10-53) U/L Alkaline Phosphatase (45-117) U/L Total Creatine Kinase (26-192) U/L Troponin I (0.02-0.05) ng/mL B-Natriuretic Peptide 105 H (0-100) pg/mL Total Protein (6.4-8.2) g/dL Albumin (3.4-5.0) g/dL Lipase (73-393) U/L Imaging Data Radiologist's impression: Chest X-Ray 07/11/18 19:27 CONCLUSION: No evidence of acute cardiopulmonary disease. Chest CTA 07/11/18 23:01 CONCLUSION: 1. No CT evidence for pulmonary artery embolism as questioned. 2. Mild diffuse upper lobe predominant centrilobular emphysema. 3. Moderate coronary artery calcifications. ECG Data Attestation: I personally reviewed and interpreted this ECG as follows: Interpretation: The patient had an EKG done on arrival that shows a sinus tachycardia with occasional ectopic premature complexes, heart rate of 106, QRS duration is 70 ms, QTC [address] segment elevation. Discharge Plan Discharge Disposition Patient Disposition: 30 Still Patient Discharge Details Diagnosis: Chest pain, rule out acute myocardial infarction, COPD exacerbation Physicians Team ED Provider: Alena Dowell Primary Care Provider: Rah Hartmann Attending Provider: Najma Mendiola Status ED Status: Admitted Observation Patient
--- NOTE | 2018-07-11 22:32 | ECG ---
Date Performed: 07/11/2018 Time Performed: 20:12:04 PTAGE: 77 years EKG: SINUS TACHYCARDIA WITH OCCASIONAL ECTOPIC PREMATURE COMPLEXES NONSPECIFIC T-WAVE ABNORMALIT Y ABNORMAL RHYTHM ECG PREVIOUS TRACING : 04/04/2018 10.49 Since the previous tracing, no significant change noted DOCTOR: Marcus Stephen Interpretating Date/Time 07/11/2018 22:31:45
[2018-07-11 22:59] LABS: Albumin 4.2 g/dL (3.4-5.0)
[2018-07-11 23:00] LABS: Total Protein 8.4 g/dL (6.4-8.2)
[2018-07-11] MEDS ORDERED: MethylPREDNISolone Sod Succinate Inj 125 MG/2 ML Vial IV.PUSH ONE (23:01)
--- NOTE | 2018-07-12 | CT ---
EXAM DATE: 07/11/2018 11:05 PM EDT AGE/SEX: 77 years / Female INDICATIONS: Shortness of breath and cough. CLINICAL DATA: This is the patient's initial encounter. Patient reports that signs and symptoms have been present for 1 day and indicates a pain score of 5/10. MEDICAL/SURGICAL HISTORY: Myocardial infarction. . Cardiac cath. RADIATION DOSE: 7.84 CTDI (mGy) COMPARISON: No prior exams available for comparison. TECHNIQUE: Volumetric scanning was performed using a multi-row detector CT scanner during bolus infu therese of 75 ml Omnipaque 350 (iohexol) nonionic water-soluble contrast as a single exam dose. The justa a was post processed with a variety of visualization algorithms including full volume maximum intensi ty projection and sliding thin slab reformation. Using automated exposure control and adjustment of the mA and/or kV according to patient size, radiation dose was kept as low as reasonably achievable t o obtain optimal diagnostic quality images. DICOM format image data is available electronically for review and comparison. FINDINGS: Pulmonary Arteries: No filling defects are seen in the pulmonary arteries through the segmental vess els. The main pulmonary artery is normal in diameter. Lung: Mild diffuse centrilobular emphysema, upper lobe predominant. No significant focal parenchymal abnormality. Pleura: No effusion, significant pleural thickening or pneumothorax. Mediastinum: Heart is unremarkable without pericardial effusion. Moderate coronary calcifications. N o evidence of mediastinal or hilar adenopathy. Osseous Structures: No abnormal focal lytic or blastic bony lesions. Other: Visulaized upper abdomen demonstrates prominent atherosclerotic calcifications of the aorta. Otherwise, unremarkable.. CONCLUSION: 1. No CT evidence for pulmonary artery embolism as questioned. 2. Mild diffuse upper lobe predominant centrilobular emphysema. 3. Moderate coronary artery calcifications. Electronically signed by: Christian Vidal MD 07/11/2018 11:58 PM EDT
[2018-07-12] MEDS ORDERED: Azithromycin 250 MG Tablet PO ONE (00:15)
[2018-07-12 01:33] LABS: Creatine Kinase 79 U/L (26-192)
[2018-07-12 04:29] VITALS: RESP 16
[2018-07-12 04:52] LABS: Creatine Kinase 92 U/L (26-192)
--- NOTE | 2018-07-12 08:50 | P.HPCA ---
History of Present Illness Primary Care Physician: Rah Hartmann MD Chief Complaint: Dizziness History of Present Illness: 77 year old female with history of CAD, cardiac stents, and continues to smoke presents to ER for further evaluation of dizziness. Patient is a poor historian and likely has underlying dementia. Reports intermittent dizziness x2 days. Denies LOC. Apparently at some point she experience intermittent chest tightness. Unable to provide more detail. ER record reviewed and ER HPI obtained from patient's daughter. History of VT with x1 cardiac stent placed, living in [place] at the time. Does not follow with a sheet metal apprentice. Cannot recall last time she seen her primary care provider. Spoke with daughter who reports mother refuses take medications as ordered or seen the PCP on regular basis and has history of early Alzheimer's. Past cardiac testing Does not follow with a sheet metal apprentice. 08/28/17 Lexiscan-No reversible perfusion defects are identified to suggest stress-induced myocardial ischemia. 08/15/15 Lexiscan-no reversible perfusion defect to suggest stress-induced myocardial ischemia, EF 62%, intact wall motion, no hypokinetic or dyskinetic wall motion. 2012 cardiac catheterization ([place])-x1 cardiac stent placed Social history Known CAD, hypertension, and hyperlipidemia. No known diabetes. Currently 1 pack/day smoker for all of her adult life. No alcohol or recreational drugs. Lives with daughter. Ambulated independently. - Diagnosis (1) Chest pain, atypical (2) Tobacco use (3) History of coronary artery disease (4) Acute bronchitis (5) Hypertension Review of Systems All other systems reviewed negative except as stated in [facility] - History History Provided By: Patient - Medical History Medical History: Medical History (Last Reviewed 07/12/18 @ 12:41 by DAVID Gibson) Myocardial infarction Tobacco use - Surgical History Surgical History: Surgical History (Last Reviewed 07/12/18 @ 12:41 by DAVID Gibson) H/O cardiac catheterization - Tobacco History Second Hand Smoke Exposure: Yes Tobacco Use In Past 30 Days: Yes Smoking Status: Current every day smoker Tobacco Type: Cigarettes Packs Per Day: 0.5 Cigarettes Per Day: 10.0 - Alcohol History How Often Do You Have a Drink Containing Alcohol: Never - Substance Use History Substance History: No History of Abuse - Travel History Recent Travel in the [place] Within the Last 8 Weeks: No Recent Travel Out of the Country Within the Last 8 Weeks: No - Immunization History Tetanus Immunization: <5 Years Hx Influenza Vaccine This Season: No Medications and Allergies Active Medications: Active Medications Nitroglycerin (Nitro-Bid 2% Oint) 1 inch TOPICAL Q6HR MARY GRACE Last Admin: 07/12/18 06:20 Dose: 1 inch Sodium Chloride (Ns Flush) 2 ml IV.FLUSH BID MARY GRACE Sodium Chloride (Ns Flush) 2 ml IV.FLUSH PRN PRN PRN Reason: FLUSH AFTER USING IV ACCESS Allergies Allergy/AdvReac Type Severity Reaction Status Date / Time No Known Allergies Allergy Unknown none Uncoded 07/11/18 22:51 Home Medications Medication Instructions Recorded Confirmed Type aspirin [Aspir-81] 81 mg PO DAILY 07/11/18 07/11/18 History Exam Vital signs: Vital Signs 07/11/18 18:10 07/11/18 23:00 07/11/18 23:20 Temperature 99.5 F Pulse Rate 104 H 84 112 H Respiratory Rate 16 18 18 Blood Pressure 179/83 H 161/72 H Pulse Oximetry 96 98 07/12/18 01:00 07/12/18 04:00 Temperature 98.4 F Pulse Rate 81 67 Respiratory Rate 20 16 Blood Pressure 165/76 H 157/70 H Pulse Oximetry 97 97 Intake & Output 07/11/18 07/12/18 07/12/18 18:59 06:59 18:59 Weight 45.359 kg 45.4 kg Other: Date of Last Bowel Movement 07/11/18 Weight On Admission 45.359 kg Narrative: GENERAL: Alert WN, WD, NAD, pleasant, thin, -[place] elderly female who is a poor historian HEAD: NC, AT CV: RRR, without murmur, rub, gallop, no JVD, S1-S2 no S3-S4. Bilateral carotid and femoral bruits. RESP: Diminished lungs throughout bilateral, no crackles, wheeze, rhonchi, symmetrical chest rise, nonlabored, able to speak in full sentences ABD: Soft, NT, ND, no masses, positive bowel tones, flat EXT: Pulses +2 pedal right, +1 left pedal pulse, no dependent edema MS: Normal tone -4 extremities, nontender, no obvious deformities, full range of motion NEURO: CN II through CN XII grossly intact, motor strength 5/5 PSYCH: A+O to self and place, memory impaired, pleasant affect, appropriate speech SKIN: Normal turgor, normal texture, no lesions, no rashes Results 07/11/18 20:05 07/11/18 20:05 Cardiac Enzymes 07/11/18 07/11/18 07/11/18 Range/Units 20:05 22:20 22:20 AST 21 (15-37) U/L Troponin I Less than 0.02 L (0.02-0.05) ng/mL B-Natriuretic Peptide 105 H (0-100) pg/mL 07/12/18 07/12/18 Range/Units 00:40 03:45 AST (15-37) U/L Troponin I Less than 0.02 L Less than 0.02 L (0.02-0.05) ng/mL B-Natriuretic Peptide (0-100) pg/mL Coagulation 07/11/18 Range/Units 22:20 B-Natriuretic Peptide 105 H (0-100) pg/mL CBC 07/11/18 Range/Units 20:05 WBC 8.7 (4.0-11.0) th/mm3 RBC 4.27 (4.00-5.30) mil/mm3 Hgb 12.9 (11.6-15.3) gm/dL Hct 38.8 (35.0-46.0) % Plt Count 254 (150-450) th/mm3 Neut # (Auto) 7.5 (1.8-7.7) th/mm3 Lymph # (Auto) 0.6 L (1.0-4.8) th/mm3 [place] # (Auto) 0.5 (0.0-0.9) th/mm3 Eos # (Auto) 0.0 (0.0-0.4) th/mm3 Baso # (Auto) 0.0 (0.0-0.2) th/mm3 Comprehensive Metabolic Panel 07/11/18 07/11/18 Range/Units 20:05 22:20 Sodium 131 L (136-145) meq/L Potassium 3.7 (3.5-5.1) meq/L Chloride 95 L (98-107) meq/L Carbon Dioxide 26.4 (21.0-32.0) meq/L BUN 9 (7-18) mg/dL Creatinine 0.88 (0.50-1.00) mg/dL Calcium 9.8 (8.5-10.1) mg/dL Direct Bilirubin 0.2 (0.0-0.2) mg/dL Indirect Bilirubin 0.3 (0.0-0.8) mg/dL AST 21 (15-37) U/L ALT 13 (10-53) U/L Alkaline Phosphatase 107 (45-117) U/L Total Protein 8.4 H (6.4-8.2) g/dL Albumin 4.2 (3.4-5.0) g/dL Intake and Output 07/11/18 07/12/18 07/12/18 22:59 06:59 14:59 Other: Date of Last Bowel Movement 07/11/18 Weight 45.359 kg 45.4 kg Weight On Admission 45.359 kg - Imaging and Cardiology Imaging: Impressions Chest X-Ray 07/11/18 19:27 CONCLUSION: No evidence of acute cardiopulmonary disease. Chest CTA 07/11/18 23:01 CONCLUSION: 1. No CT evidence for pulmonary artery embolism as questioned. 2. Mild diffuse upper lobe predominant centrilobular emphysema. 3. Moderate coronary artery calcifications. EKG interpretations - EKG EKG results cardiology: sinus rhythm (Nonspecific T wave changes) Caprini VTE Risk Assessment Caprini VTE Risk Assessment: Moderate/High Risk (score >= 2) Caprini Risk Assessment Model: Point Value = 1 Point Value = 2 Point Value = 3 Point Value = 5 Age 41-60 Minor surgery BMI > 25 kg/m2 Swollen legs Varicose veins or History of unexplained or recurrent spontaneous Oral contraceptives or hormone replacement Sepsis (< 1 month) Serious lung disease, including pneumonia (< 1 month) Abnormal pulmonary function Acute myocardial infarction Congestive heart failure (< 1 month) History of inflammatory bowel disease Medical patient at bed rest Age 61-74 Arthroscopic surgery Major open surgery (> 45 min) Laparoscopic surgery (> 45 min) Malignancy Confined to bed (> 72 hours) Immobilizing plaster cast Central venous access Age >= 75 History of VTE Family history of VTE Factor V Leiden Prothrombin [id number] Lupus anticoagulant Anticardiolipin antibodies Elevated serum homocysteine Heparin-induced thrombocytopenia Other congenital or acquired thrombophilia Stroke (< 1 month) Elective arthroplasty Hip, pelvis, or leg fracture Acute spinal cord injury (< 1 month) Prophylaxis Regimen: Total Risk Factor Score Risk Level Prophylaxis Regimen 0-1 Low Early ambulation 2 Moderate Order ONE of the following: *Sequential Compression Device (SCD) *Heparin 5000 units SQ BID 3-4 Higher Order ONE of the following medications: *Heparin 5000 units SQ TID *Enoxaparin/Lovenox 40 mg SQ daily (WT < 150 kg, CrCl > 30 mL/min) *Enoxaparin/Lovenox 30 mg SQ daily (WT < 150 kg, CrCl > 10-29 mL/min) *Enoxaparin/Lovenox 30 mg SQ BID (WT < 150 kg, CrCl > 30 mL/min) AND/OR *Sequential Compression Device (SCD) 5 or more Highest Order ONE of the following medications: *Heparin 5000 units SQ TID (Preferred with Epidurals) *Enoxaparin/Lovenox 40 mg SQ daily (WT < 150 kg, CrCl > 30 mL/min) *Enoxaparin/Lovenox 30 mg SQ daily (WT < 150 kg, CrCl > 10-29 mL/min) *Enoxaparin/Lovenox 30 mg SQ BID (WT < 150 kg, CrCl > 30 mL/min) AND *Sequential Compression Device (SCD) Assessment and Plan - Assessment (1) Chest pain, atypical Code(s): R07.89 - Other chest pain Status: Acute Plan: Admitted chest pain center. ACS ruled out with 3 sets of EKGs and cardiac enzymes. Apparently had some sort of chest discomfort. Due to history of coronary artery disease and continuing to smoke will proceed with Lexiscan. RN notified daughter of plan of care. (2) Tobacco use Code(s): Z72.0 - Tobacco use Status: Chronic Plan: Strongly encouraged and stressed importance of tobacco cessation. Instructed to quit smoking. (3) History of coronary artery disease Code(s): Z86.79 - Personal history of other diseases of the circulatory system Status: Chronic Plan: Encouraged establishing with a sheet metal apprentice and compliance with medication. Benefits of taking ordered cardiac medications and smoking cessation discussed. Daughter at bedside and also attempting to dissuade mother into seeing sheet metal apprentice and taking prescriptions. (4) Acute bronchitis Code(s): J20.9 - Acute bronchitis, unspecified Status: Acute Plan: ER prescribed azithromycin, prednisone, and inhaler prior to chest pain center admission. (5) Hypertension Code(s): I10 - Essential (primary) hypertension Status: Acute Plan: Continue to monitor. H&P: Quality - VTE Deep Vein Thrombosis/Pulmonary Embolism Present on Admission: No (5) Hypertension Qualifiers: Hypertension type: unspecified Qualified Code(s): I10 - Essential (primary) hypertension
[2018-07-12 09:17] VITALS: BP 166/70; TEMP 98.9; O2SAT 93
[2018-07-12] MEDS ORDERED: Regadenoson Inj 0.4 MG/5 ML Syringe IV.PUSH ONE (10:55)
--- NOTE | 2018-07-12 13:43 | NM ---
EXAM DATE: 07/12/2018 10:00 AM EDT AGE/SEX: 77 years / Female INDICATIONS:Angina. Myocardial infarction Chest pain. Unsteady on her feet and dyspnea ipon exertion. CLINICAL DATA: This is the patient's initial encounter. Patient reports that signs and symptoms have been present for 1 day and indicates a pain score of 4/10. MEDICAL/SURGICAL HISTORY: . Smoker. Coronary artery stent. COMPARISON: [facility] [place], MYOCARDIAL PERF PHARM SPECT, 08/28/2017. [facility] [place], MYOCARDIAL PERF PHARM SPECT, 08/15/2015. . DOSE: 8.2 mCi Tc 99m Myoview at rest 26.1 mCi [id number] at stress 0.4 mg Lexiscan STRESS SYMPTOMS: Dyspnea. EJECTION FRACTION: 76 % TECHNIQUE: The patient underwent pharmacologic stress with infusion of prescribed dose. Continuous ECG tracing was monitored during stress. Gated SPECT imaging was performed after stress and conventi onal SPECT imaging was performed at rest. The examination was performed on a SPECT/CT scanner, both attenuation and non-corrected datasets were reviewed. FINDINGS: Distribution: The maximum perfused segment at stress is in the septal wall. Perfusion Study: The pattern of perfusion at stress is within normal limits. Gated Study: There are intact wall motion and wall thickening without hypokinetic or dyskinetic segm ents. The ejection fraction is calculated at 76%. RISK CATEGORY: Low (<1% Annual Motality Rate) CONCLUSION: 1. Negative examination. Electronically signed by: Carlos Bahena MD 07/12/2018 1:41 PM EDT
--- NOTE | 2018-07-12 14:50 | ECG ---
Date Performed: 07/12/2018 Time Performed: 04:23:46 PTAGE: 77 years EKG: Sinus rhythm MODERATE T-WAVE ABNORMALITY, CONSIDER INFERIOR ISCHEMIA ABNORMAL ECG PREVIOUS TRACING : 07/12/2018 00.45 Since previous tracing, no significant change noted DOCTOR: Navid Martinez Interpretating Date/Time 07/12/2018 14:49:17
--- NOTE | 2018-07-12 14:51 | ECG ---
Date Performed: 07/12/2018 Time Performed: 00:45:22 PTAGE: 77 years EKG: Sinus rhythm NONSPECIFIC T-WAVE ABNORMALITY BORDERLINE ECG PREVIOUS TRACING : 07/11/2018 20.12 Since previous tracing,t wave changes are new DOCTOR: Navid Martinez Interpretating Date/Time 07/12/2018 14:50:55
--- NOTE | 2018-07-12 14:55 | TR ---
Date Performed: 07/12/2018 Time Performed: 11:22:45 DOCTOR: Navid Martinez DRUG LIST: CLINICAL HISTORY: ANGINA REASON FOR TEST: CHEST PAIN REASON FOR ENDING: OBSERVATION: CONCLUSION: COMMENTS: Lexiscan stress test was performed under standard four minute protocol. Radionuclide was injected one minute prior to ending the test. No electrocardiographic abormalities were present t o suggest ischemia. Nuclear imaging and interpretation are pending.
[2018-07-12 15:53] VITALS: PULSE 81
== END 2018-07-12 14:24 | disposition home or self-care (01) ==
LOC: NEPC 17:42 → NEDA 17:42 → NEPFCDU 07-12 01:30
PROVIDERS: ADMIT Internal Medicine Interventional Cardiology; ATTEND Internal Medicine Interventional Cardiology